=== PATIENT | male | born 1930 | race Caucasian/White ===

== ENCOUNTER → 2017-05-18 | Outpatient (CLI) | payer MEDICARE, BC ==
[~2017-05-18] MED LIST: IOHEXOL 300 MG/ML 100ML VIAL. IV ONE
--- NOTE | 2017-05-18 10:33 | RAD ---
CTA of the chest, abdomen, and pelvis. 05/18/2017 Indication: Ascending thoracic aortic aneurysm Comparison study: None Technique: Multidetector CT imaging of the chest, abdomen, and pelvis was performed following the administration of IV contrast. 3-D reconstructions of thoracic, abdominal, and pelvic vasculature were created on an independent workstation. Vascular findings: Heart size is normal. [place] coronary calcification noted. Coronary bypass procedure noted. At the level of the sinotubular junction the thoracic aorta is normal in caliber measuring 3.2 cm. There is ectasia of the ascending thoracic aorta to 3.7 cm. The level of the left subclavian artery the thoracic aorta measures 2.5 cm. The level of the aortic isthmus aorta measures up to 3 cm in diameter. Mild atherosclerotic vascular irregularity seen throughout the descending thoracic aorta. Descending thoracic aorta is mildly ectatic measuring 3.1 cm. At the level of the diaphragm the thoracic aorta measures approximately 3.2 cm. Celiac artery is patent. Mild stenosis of the proximal SMA is seen. Approximately 3 cm distal to the ostium appears to be a small nonflow limiting dissection of the SMA with mild associated ectasia. The remainder of the SMA is unremarkable. Moderate stenosis of the left renal artery is seen. Mild stenosis of the right renal artery is noted. Tortuosity of the distal abdominal aorta is seen There is a partially thrombosed infrarenal abdominal aortic aneurysm measuring 3.6 cm in diameter. The SHAKIRA arises from the aneurysmal portion of the abdominal aorta. Abdominal aorta returns to normal caliber prior to the aortic bifurcation. Mild ectasia of the bilateral common iliac arteries is seen. A common iliac, internal iliac, and external iliac arteries remain patent. Nonvascular findings: Scattered small mediastinal lymph nodes are noted without pathologically enlarged adenopathy. There is no pneumothorax or pleural effusion. Emphysematous changes including apical scarring are noted bilaterally. No acute appearing infiltrate is identified. There is a 4 mm noncalcified nodule in the left lower lobe (axial image 695). There is a 3 mm noncalcified nodule in the right upper lobe (axial image 184). There is a punctate 1 to 2 mm nodule in the apical right lower lobe (axial image 436). There is a noncalcified nodule more inferior right lower lobe measuring 6 mm in diameter (axial image 692). There is a subpleural nodule along the major fissure in the right lower lobe with a triangular configuration most likely due to pulmonary lymph node (axial image 715). No acute abnormalities involving the solid viscera of the abdomen are identified. Renal cysts noted bilaterally. Atrophic changes involving the pancreas are noted. A duodenal diverticulum is seen. No free fluid or free air seen in the abdomen or pelvis. No evidence of bowel obstruction is identified. Small hiatal hernia is noted. Postsurgical changes involving the distal large bowel consistent with prior distal large bowel resection noted. Correlate with surgical history. Increased stool is noted throughout the colon. Correlate with evidence of constipation. Bladder is grossly unremarkable predominately decompressed. No acute appearing osseous abnormalities are identified. S shaped scoliosis of the thoracic and lumbosacral spine noted. Calcified lesion along the anterior aspect of the right scapula is noted. The appearance suggests either an endochondroma or other such benign lesion versus intramuscular calcification which could be the result of prior trauma. Impression: 1. Ectasia of the ascending thoracic aorta 3.7 cm. Mild ectasia of the descending thoracic aorta 3.2 cm. 2. Infrarenal abdominal aortic aneurysm measuring up to 3.[address] surveillance recommended. 3. Multiple small noncalcified pulmonary nodules involving both lungs. Largest nodule measures 6 mm in the right lower lobe. CT surveillance recommended as described below in detail. Fleischner society pulmonary nodule recommendations 2017 guidelines Solid nodules Solitary nodule size: <6 mm low risk patients: no follow-up needed high risk patients: optional CT at 12 months Solitary nodule size: 6-8 mm low risk patients: follow-up at 6-12 months, then consider further follow-up at 18-24 months high risk patients: initial follow-up CT at 6-12 months and then at 18-24 months if no change Solitary nodule size: >8 mm either low or high risk patients consider follow-up CT at 3 months, and/or CT-PET, and/or biopsy Multiple nodules size: <6 mm low risk patients: no routine follow-up high risk patients: optional CT at 12 months Multiple nodules size: 6-8 mm low risk patients: follow-up at 3-6 months, then consider further follow-up at 18-24 months high risk patients: follow-up at 3-6 months, then at 18-24 months if no change Multiple nodules size: >8 mm low risk patients: follow-up at 3-6 months, then consider further follow-up at 18-24 months high risk patients: follow-up at 3-6 months, then at 18-24 months if no change Note: newly detected indeterminate nodule in persons 35 years of age or older. Low risk patients: minimal or absent history of smoking and or other known risk factors high risk patients: history of smoking or of other known risk factors (e.g. first degree relative with lung cancer, or exposure to asbestos, radon, uranium) nodule up to 8 mm is partly solid or is ground glass further follow-up is required after 24 months to exclude possible slow growing adenocarcinoma (SAKSHI) PQRS Compliance Statement: One or more of the following individualized dose reduction techniques were utilized for this examination: 1. Automated exposure control 2. Adjustment of the mA and/or kV according to patient size 3. Use of iterative reconstruction technique
== END | disposition home or self-care (01) ==
LOC: CT 08:24
PROVIDERS: ATTEND Internal Medicine Cardiovascular Disease
DX: I71.2 Thoracic aortic aneurysm, without rupture (principal); I10 Essential (primary) hypertension; R91.8 Other nonspecific abnormal finding of lung field
CPT/HCPCS: 71275; 74174; Q9967

== ENCOUNTER → 2017-11-14 | Outpatient (CLI) | payer MEDICARE, BC ==
[2017-11-14] MEDS: IOHEXOL 300 MG/ML 100ML VIAL. IV (08:50)
== END | disposition home or self-care (01) ==
LOC: CT 07:37
DX: I10 Essential (primary) hypertension (principal); I71.2 Thoracic aortic aneurysm, without rupture; I71.4 Abdominal aortic aneurysm, without rupture; J43.9 Emphysema, unspecified
CPT/HCPCS: 71275; 74174; Q9967

== ENCOUNTER → 2018-01-23 | Outpatient (CLI) | payer MEDICARE, BC ==
[2018-01-23] MEDS: REGADENOSON 0.4 MG/5 ML DISP.SYRIN. IV (11:04)
== END | disposition home or self-care (01) ==
LOC: ECHO 07:15
DX: I25.10 Atherosclerotic heart disease of native coronary artery without angina pectoris (principal); I35.1 Nonrheumatic aortic (valve) insufficiency; I10 Essential (primary) hypertension; J43.9 Emphysema, unspecified
CPT/HCPCS: 78452; 93017; 93306; 96374; 96375; 96376; A9500; J2785

== ENCOUNTER → 2018-03-14 | Outpatient (CLI) | payer MEDICARE, BC ==
[~2018-03-14] MED LIST changes: +CONTRAST GIVEN. MC PRN; +IOHEXOL 240 MG/ML 50ML VIAL. ONE; +IOHEXOL 240 MG/ML 50ML VIAL. PO ONE; +IOHEXOL 300 MG/ML 100ML VIAL. ONE
--- NOTE | 2018-03-14 13:43 | RAD ---
CT CHEST ABD PELVIS W/CONTRAST Indication: Anemia, lymphoma Technique: Postcontrast CT imaging was performed of the chest, abdomen, pelvis, multiplanar reconstruction images submitted. Oral contrast was given. One or more of the following individualized dose reduction techniques were utilized for this examination: 1. Automated exposure control 2. Adjustment of the mA and/or kV according to patient size 3. Use of iterative reconstruction technique. Contrast: 60 cc Omnipaque 300 Comparison: CTA exam November 14, 2017 CHEST: Findings: There again has been a median sternotomy. There is coronary calcification. There is again dilatation of the aortic root about 4.5 cm. Tubular ascending thoracic aorta measures about 3.8 cm, similar. No dissection flap is identified of the thoracic aorta. There is scattered plaque. There is no pleural or pericardial effusion, pneumothorax, infiltrate. There are stable small pulmonary nodules such as of the right lower lobe axial image 40 series 2 about 5 mm, right lower lobe axial image 39 about 5 mm, left lower lobe axial image 40 measuring 4 mm, right upper lobe axial image 9 about 3 to 4 mm. There is some paraseptal emphysema seen previously. There is no new significant lymphadenopathy of the chest. There is bilateral gynecomastia as seen previously. There is moderate thoracic dextroscoliosis. There is partially calcified mass lesion at the anterior medial margin of the right scapula overall dimension about 4.2 cm AP by 3.1 cm transverse by about 3.8 cm CC. IMPRESSION: 1. There is similar aneurysmal dilatation aortic root and tubular ascending thoracic aorta. 2. Small pulmonary nodules are stable compared with May 2017 exam. As per revised Fleischner guidelines, no additional follow-up needed if low risk factors, optional 12 month follow-up if increased risk factors. 3. There is bilateral gynecomastia. 4. There is again partially calcified mass lesion along the medial margin of the right scapula, mass such as chondrosarcoma in the differential considerations for which MRI evaluation is recommended. Abdomen and pelvis: FINDINGS: There is no new focal abnormality of the liver, normal-sized spleen, atrophic pancreas. Both kidneys enhance without hydronephrosis. There are again bilateral renal cysts, largest on the right about 3.8 cm. There is no adrenal nodularity. Gallbladder is present without obvious intraluminal abnormality by CT. There is again infrarenal abdominal aortic aneurysm about 3.6 cm in caliber, similar. No new significant lymphadenopathy is identified. Bowel is not significantly dilated. There is no free air or free fluid. There is some stool and gas distention of the rectum. Mild wall thickening of the terminal ileum is difficult to exclude on this exam. There is heterogeneity in the lumen of the colon such as near the splenic flexure more likely due to stool, although underlying mass not excludable. There is mild S-shaped scoliosis of the lumbar spine. There is multilevel advanced degenerative disc disease of the lumbar spine greater inferiorly, also multilevel lumbar facet degenerative change. IMPRESSION: 1. There is no significant lymphadenopathy. 2. There is stable aneurysmal dilatation of the infrarenal abdominal aorta. 3. Mild wall thickening of the terminal ileum as can be seen with ileitis is not excluded on this exam. 4. There is some retained stool in the colon, some heterogeneity in the lumen such as near the splenic flexure more likely due to stool although mass not excludable by CT. Electronically signed by: Houston Andres MD (03/14/2018 1:40 PM) [id number]
== END | disposition home or self-care (01) ==
LOC: CT 07:36
PROVIDERS: ATTEND Internal Medicine Hematology & Oncology
DX: D64.9 Anemia, unspecified (principal); I71.4 Abdominal aortic aneurysm, without rupture; M51.36 Other intervertebral disc degeneration, lumbar region; K63.89 Other specified diseases of intestine; M41.86 Other forms of scoliosis, lumbar region; N28.1 Cyst of kidney, acquired; N62 Hypertrophy of breast; J43.9 Emphysema, unspecified; I25.10 Atherosclerotic heart disease of native coronary artery without angina pectoris; I10 Essential (primary) hypertension
CPT/HCPCS: 71260; 74177; Q9966; Q9967

== ENCOUNTER → 2018-03-21 | Outpatient (CLI) | payer MEDICARE, BC ==
[~2018-03-21] MED LIST changes: -CONTRAST GIVEN. MC PRN; +GADOBUTROL 7.5 MMOL/7.5 ML VIAL IV ONE; -IOHEXOL 240 MG/ML 50ML VIAL. ONE; -IOHEXOL 240 MG/ML 50ML VIAL. PO ONE; -IOHEXOL 300 MG/ML 100ML VIAL. IV ONE; -IOHEXOL 300 MG/ML 100ML VIAL. ONE
--- NOTE | 2018-03-21 10:43 | RAD ---
MR of the right shoulder with and without contrast HISTORY: Right scapular mass. TECHNIQUE: Pre and postcontrast imaging obtained through the right shoulder. COMPARISON: CT chest scan 03/14/2018. FINDINGS: There is an irregular round structure just anterior to the scapula and glenoid, and surrounded by fluid, correlates with the calcified lesion seen on CT. This measures 2.4 cm diameter. This demonstrates central lack of signal compatible with a calcification, surrounded by a rim of fatty signal compatible with marrow. This is compatible with an osteochondral loose body in the subscapularis recess. 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 There is flattening and volume loss of the glenoid. Small joint effusion. Diffuse synovial enhancement. Diffuse labral blunting/degeneration. Rotator cuff tendinosis, no evidence of full-thickness retracted rotator cuff rupture. Acromioclavicular joint is mildly degenerative. Biceps tendon is intact. IMPRESSION: 1. Severe primary osteoarthritis. 2. Lesion within the subscapularis recess, correlates with the finding on CT chest, most likely a large osteochondral loose body. 3. Joint effusion with synovitis. Electronically signed by: Husam Rodriguez MD (03/21/2018 10:39 AM) [id number]
== END | disposition home or self-care (01) ==
LOC: MRI 08:21
PROVIDERS: ATTEND Internal Medicine Hematology & Oncology
DX: M19.011 Primary osteoarthritis, right shoulder (principal); M65.811 Other synovitis and tenosynovitis, right shoulder; M25.411 Effusion, right shoulder; I10 Essential (primary) hypertension; Z79.01 Long term (current) use of anticoagulants; Z86.73 Personal history of transient ischemic attack (TIA), and cerebral infarction without residual deficits
CPT/HCPCS: 73223; A9585

== ENCOUNTER → 2018-05-30 | Outpatient (CLI) | payer MEDICARE, BC ==
--- NOTE | 2018-05-30 17:46 | RAD ---
MR#: [id number] Date of Study: 05/30/2018 Ordering Physician: CANDIDA MESSER, Referring Physician: CANDIDA MESSER, Tech: Daryl Badillo MBA, RDMS, RVT, RDCS, RTR APPROVED REPORT Patient Location: OUT-PATIENT Indications edema Findings Ankle-brachial index of the right left side were obtained. Right arm: 118 mmHg, left arm 115 mmHg Right ankle 151 mmHg, left ankle 155 mmHg KENYA right side: 1.3 KENYA left side 1.3 Critical Notification Critical Value: No <Conclusion> 1. Mildly elevated bilateral ankle-brachial indices suggestive of calcification. Signed by : Jerry Kam, Electronically Approved : 05/30/2018 17:44:59
--- NOTE | 2018-05-30 17:47 | RAD ---
MR#: [id number] Date of Study: 05/30/2018 Ordering Physician: CANDIDA MESSER, Referring Physician: CANDIDA MESSER, Tech: Daryl Badillo MBA, RDMS, RVT, RDCS, RTR APPROVED REPORT Bilateral Lower Extremity Venous Study for DVT Patient Location: OUT-PATIENT Indications Lower Extremity Edema: Bilateral Vein Imaging (Right) CFV (R): Compressible SFJ (R): Compressible FEM (R): Compressible POP (R): Compressible DFV (R): Compressible PTV (R): Spontaneous GSV (R): Spontaneous Peroneals (R): Spontaneous Vein Imaging (Left) CFV (L): Compressible SFJ (L): Compressible FEM (L): Compressible POP (L): Compressible DFV (L): Compressible PTV (L): Spontaneous Peroneals (L): Spontaneous GAS (L): Spontaneous Doppler Evaluation (Right) CFV (R): Spontaneous POP (R):Spontaneous Doppler Evaluation (Left) CFV (L):Spontaneous POP (L):Spontaneous Findings The bilateral lower extremity deep veins were evaluated for thrombus with color Doppler, spectral and grayscale images. On the right the grayscale images of the common femoral, superficial femoral and popliteal veins do n ot demonstrate any evidence of thrombus and these veins appear to be compressible. The below-knee vei ns were not well visualized but grossly appear to be compressible. Spectral imaging and color Doppler do not reveal any evidence of obstruction to flow with normal respirophasic variation above the knee . Below the knee there is spontaneous flow noted. On the left, the grayscale images of the common femoral, superficial femoral and popliteal veins do n ot demonstrate any evidence of thrombus and these veins appear to be compressible. The below-knee vei ns again were not well visualized but grossly appear to be compressible. Spectral imaging and color D oppler do not reveal any evidence of obstruction to flow with normal respirophasic variation above th e knee. The below-knee veins demonstrate spontaneous flow. Critical Notification Critical Value: No <Conclusion> Negative for DVT in the bilateral lower extremities. Signed by : Jerry Kam, Electronically Approved : 05/30/2018 17:46:19
--- NOTE | 2018-05-30 17:49 | RAD ---
MR#: [id number] Date of Study: 05/30/2018 Ordering Physician: CANDIDA MESSER, Referring Physician: CANDIDA MESSER, Tech: Daryl Badillo MBA, RDMS, RVT, RDCS, RTR APPROVED REPORT Patient Location : OUT-PATIENT Indications Lower Extremity Edema : Bilateral Findings Grayscale images of the saphenofemoral junctions do not reveal any obvious evidence of thrombus. The left great saphenous vein has been previously stripped in 2008 The right great saphenous vein measures 4.1 mm and does not reflux. The bilateral lesser saphenous ve ins do not show any evidence of reflux. Critical Notification Critical Value: No <Conclusion> 1. Negative for reflux in the right greater and bilateral lesser saphenous veins. Previous left GSV s tripping. Signed by : Jerry Kam, Electronically Approved : 05/30/2018 17:47:30
== END | disposition home or self-care (01) ==
LOC: US 13:18
PROVIDERS: ATTEND Nurse Practitioner
DX: R60.0 Localized edema (principal); I25.10 Atherosclerotic heart disease of native coronary artery without angina pectoris
CPT/HCPCS: 93922; 93970

== ENCOUNTER → 2018-07-31 | Outpatient (CLI) | payer MEDICARE, BC ==
[~2018-07-31] MED LIST changes: +AMLO10TA8 PO; +AMLO5TAB10 PO; +ASPI-630 PO; +ATOR10TA60 PO; +BIMA2.5D OP; +BRIM5DRO2 OP; +CYAN250012 PO; +DOCU100C28 PO; +EYLEA EACHEYE; -GADOBUTROL 7.5 MMOL/7.5 ML VIAL IV ONE; +IRON1TAB2 PO; +LEVO25TA4 PO; +METO-239 PO; +OMEP20CA10 PO; +POLY17PO29 PO; +TRAM-48 PO; +VIT1CAPS12 PO
[2018-07-31 11:23] LABS: BASO % 0 % (0-3); EOS # 0.3 x10^3/uL (0.0-0.7); EOS % 4 % (0-3); HEMATOCRIT 40.1 % (39.0-53.0); HEMOGLOBIN 12.9 g/dL (13.0-17.5); LYMPH # 2.2 x10^3/uL (1.0-4.8); LYMPH % 30 % (24-48); MEAN CORPUSCULAR HEMOGLOBIN 30 pg (25-35); MEAN CORPUSCULAR HGB CONC 32 g/dL (31-37); MEAN CORPUSCULAR VOLUME 92 fL (79-100); MONO # 0.5 x10^3/uL (0.0-1.1); MONO % 7 % (0-9); NEUT # 4.3 x10^3uL (1.8-7.7); NEUT % 59 % (31-73); PLATELET COUNT 136 x10^3/uL (140-400); RED BLOOD COUNT 4.35 x10^6/uL (4.30-5.70); RED CELL DISTRIBUTION WIDTH 15.3 % (11.5-14.5); WHITE BLOOD COUNT 7.4 x10^3/uL (4.0-11.0)
[2018-07-31 11:25] LABS: BILIRUBIN,URINE NEGATIVE (NEG); CLARITY,URINE CLEAR; COLOR,URINE YELLOW; NITRITE,URINE NEGATIVE (NEG); PH,URINE 5.5; PROTEIN,URINE NEGATIVE (NEG-TRACE); UROBILINOGEN,URINE 0.2 mg/dL (0.2 mg/dL)
[2018-07-31 11:36] LABS: PROTHROMBIN TIME PATIENT 13.1 SEC (11.7-14.0)
[2018-07-31 11:41] LABS: BACTERIA,URINE 0 /HPF (0-FEW); RBC,URINE OCC /HPF (0-2); WBC,URINE 0 /HPF (0-4)
--- NOTE | 2018-08-07 18:17 | NUR ---
PATIENT WAS CALLED AT 1740 08/07/2018 AND UPDATE PRE - OP INSTRUCTIONS TO BE EHERE [facility]C-OPD AT 1205 AND CAN HAVE CLEAR LIQ. & WATER TILL 0930 ONLY OTHERWISE THE REST OF THE INSTRUCTIONS THE SAME AND VERBALIZED UNDERSTANDING.
== END | disposition home or self-care (01) ==
LOC: EDSEX → SURGPAT 10:34
PROVIDERS: ATTEND Orthopaedic Surgery
DX: Z01.818 Encounter for other preprocedural examination (principal); M19.011 Primary osteoarthritis, right shoulder; Z88.5 Allergy status to narcotic agent; Z79.01 Long term (current) use of anticoagulants
CPT/HCPCS: 36415; 81001; 82040; 85025; 85610; 85651; 85730; 87641

== ENCOUNTER 2018-08-08 11:30 | Inpatient (IN) | payer MEDICARE, BC ==
[~2018-08-08] VITALS: Ht 172.7 cm; Wt 72.1 kg
[~2018-08-08 11:30] MED LIST changes: -AMLO5TAB10 PO; +IV RINGERS,LACTATED 1000ML 1,000 ML IV SCH; +KETOROLAC 30MG VIAL 30 MG, ROPIVacaine 0.5% PF 60 ML, EPINEPHrine 0.5 MG in IV NORMAL S... IV PRN; +LIDOCAINE 1% PF 2 ML VIAL. ID PRN; +ONDANSETRON PF 4 MG/2 ML VIAL. IV PRN; +PROCHLORPERAZINE 10 MG/2 ML VIAL. IV PRN; -TRAM-48 PO; +fentaNYL PF VIAL 100 MCG/2 ML VIAL IV PRN
[2018-08-08] MEDS ORDERED: ACETAMINOPHEN 500 MG TABLET PO ONE (12:15)
[2018-08-08 12:26] LABS: PROTHROMBIN TIME PATIENT 13.7 SEC (11.7-14.0)
[2018-08-08] MEDS ORDERED: ROPIVacaine 0.5% PF 20 ML VIAL. ONE (14:09)
[2018-08-08] MEDS ORDERED: LIDOCAINE 2% PF 5 ML VIAL. ONE (14:11)
[2018-08-08] MEDS ORDERED: fentaNYL PF VIAL 100 MCG/2 ML VIAL ONE (14:11)
[2018-08-08] MEDS ORDERED: PROPOFOL 20 ML IV ONE (14:11)
[2018-08-08] MEDS ORDERED: MIDAZOLAM HCL/PF 2 MG/2 ML VIAL. ONE (14:26)
[2018-08-08] MEDS ORDERED: DESFLURANE > 120 MINUTES IH ONE (16:01)
[2018-08-08] MEDS ORDERED: FAMOTIDINE 20 MG/2 ML VIAL ONE (16:01)
[2018-08-08] MEDS ORDERED: DEXAMETHASONE SOD PHOS 20 MG/5 ML VIAL. ONE (16:01)
[2018-08-08] MEDS ORDERED: ONDANSETRON PF 4 MG/2 ML VIAL. ONE (16:01)
[2018-08-08] MEDS ORDERED: GLYCOPYRROLATE 1 MG/5 ML VIAL. ONE (16:39)
[2018-08-08] MEDS ORDERED: NEOSTIGMINE 10 MG/10 ML VIAL. ONE (18:11)
[2018-08-08] MEDS ORDERED: SEVOFLURANE > 120 MINUTES. IH ONE (18:36)
[2018-08-08] MEDS ORDERED: DEXTROSE 50% 25 GM / 50ML DISP.SYRIN. IV PRN (18:45)
[2018-08-08] MEDS ORDERED: oxyCODONE/APAP 7.5/325 1 TAB TABLET PO PRN (18:45)
[2018-08-08] MEDS ORDERED: ACETAMINOPHEN 325 MG TABLET. PO PRN (18:45)
[2018-08-08] MEDS ORDERED: HYDROmorphone 2 MG/ML VIAL IV PRN (18:45)
[2018-08-08] MEDS ORDERED: CALCIUM CARBONATE 500 MG TAB.CHEW PO PRN (18:45)
[2018-08-08] MEDS ORDERED: ZOLPIDEM 5 MG TABLET. PO PRN (18:45)
[2018-08-08] MEDS ORDERED: PROCHLORPERAZINE 5 MG TABLET. PO PRN (18:45)
[2018-08-08] MEDS ORDERED: traMADol 50 MG TABLET PO PRN (18:45)
[2018-08-08] MEDS ORDERED: 0.9 % SODIUM CHLORIDE 10 ML DISP.SYRIN. IV PRN (18:45)
--- NOTE | 2018-08-08 18:48 | PDOC4 ---
Operative Note Operative Note Date of surgery: 08/08/2018 Preoperative diagnosis: Degenerative joint disease right humeral joint Postoperative diagnosis same with right rotator cuff insufficiency Operative procedure: Right reverse shoulder arthroplasty Surgeon: Kaveh Assist: Jennifer Anesthesia: Gen. Estimated blood loss: 100 mL Complications: None Operative indications: Mr. Garduno is a 87-year-old male with severe left shoulder pain and limitations due to his degenerative joint disease. On his examination he has decreased active range of motion but unclear whether there was really rotator cuff arthropathy. I went over with him that since he had failed nonoperative management including injections and activity modification are operative treatment would include the possibility of a total shoulder arthroplasty if his rotator cuff is really intact and functional and reverse shoulder arthroplasty is necessary due to insufficiency of his rotator cuff. I told him that this would be judged at the time of surgery and covered the difference of the to procedures the rationale using models and a discussion of the mechanics involved. He understands the possibility of having to proceed with either procedure depending on the intraoperative findings all his questions were answered and he verbalized understanding of the possibility of infection continued pain instability nerve or blood vessel damage medical or other anesthetic consultations among others. Operative text: Patient was identified procedure verified patient placed in the supine position on the operative table. After adequate amounts of general anesthesia were administered he was placed in the Tmax table with the spider arm moura in semi-beachchair position and the right shoulder was prepped and draped in standard sterile fashion. After timeout was performed patient procedure identified and verified a deltopectoral approach was carried out cephalic vein was taken laterally deltoid was released distally as was the superior aspect of the pectoralis tendon. Initially rotator cuff tendon was grossly intact subscapularis was peeled off tagged and released from its anterior capsule attachment. When the humerus was exposed again initially rotator cuff was grossly intact however the rotator cuff footprint over the greater tuberosity was noted to be about 90% compromised at least as it was peeled back and the footprint completely uncovered. I thus meter installer due to the insufficiency of the rotator cuff insertion to proceed with a reverse shoulder arthroplasty humerus was reamed the cutting guide was cut between 0 and 20 of version reaming and a size 14 implant was chosen on the humeral side. The glenoid was exposed found to be completely denuded of cartilage as expected capsular release was performed and a guidewire was drilled load and an slight declination on the glenoid surface to prevent any scapular notching reaming was carried out to good bleeding bone without compromise especially inferiorly the area was drilled somewhat more after preparation to enhance ingrowth and a size 36 mm glenoid sphere baseplate was impacted into place with excellent interdigitation and a 42 mm screw was placed inferiorly and scapular spine and a 36 mm screw up to the base of the coracoid both gave excellent bite and were locked in position. 36 mm glenoid sphere was impacted into place engaging the Avila taper fully and trialing was carried out with a +6 standard polyethylene component. Excellent range of motion and stability were noted throughout trial humeral component was removed some bone graft was placed to enhance stability and in proper version the size 14 Mike reverse shoulder humeral stem was impacted in place and was preassembled with a +6 nonretention of polyethylene insert the shoulder was reduced and had equivalent range of motion and stability as the trial fitting. Subscapularis was repaired with #5 Ethibond suture as was the superior aspect of the pectoralis thorough irrigation was carried out fascia was closed with #1 strata fix PDS suture subcutaneous closure with buried Vicryl suture in subcuticular Monocryl followed by a sterile dressing patient was returned to recovery room in stable condition having tolerated procedure well Jennifer moorepublic health assistant was present for the procedure assisted in the prepping draping retraction and skin closure JOHANA BELTRAN MD Aug 08, 2018 18:48
[2018-08-08] MEDS: fentaNYL PF VIAL 100 MCG/2 ML VIAL IV PRN ×4 (18:56→19:25)
--- NOTE | 2018-08-08 19:35 | RAD ---
Indication:INPATIENT. POST OP RIGHT SHOULDER ARTHROSCOPY. PRIOR XRAY TECHNIQUE: 3 views of the right shoulder COMPARISON:Previous exam from 03/25/2017 FINDINGS:Status post total shoulder arthroplasty. No acute fracture. Moderate emphysema around the shoulder joint likely postsurgical. Stable sclerotic focus projecting over the scapula. Visualized right lung is clear. IMPRESSION: Expected postsurgical changes from total right shoulder arthroplasty. Electronically signed by: Madhu Remy DO (08/08/2018 7:32 PM) [facility]
[2018-08-08] MEDS: HYDROmorphone 2 MG/ML VIAL IV PRN ×2 (19:48→19:58)
[2018-08-08] MEDS ORDERED: IV DEXTROSE 5 %-0.45 % NACL 1,000 ML IV SCH (20:00)
[2018-08-08 20:15] VITALS: BP 142/81
--- NOTE | 2018-08-08 20:30 | NUR ---
Rec'd from PACU s/p right reverse shoulder arthroplasty. Patient A&O, denies pain, CMS intact right hand, dressing C/D. Family at bedside. Call light in reach.
[2018-08-08 20:45] VITALS: BP 138/87
[2018-08-08] MEDS ORDERED: NON FORMULARY ITEM (Brimonidine Tartrate/Timolol (Combigan Eye Drops) 5 ML) OP SCH (21:00)
[2018-08-08] MEDS ORDERED: ATORVASTATIN CALCIUM 10 MG TABLET. PO SCH (21:00)
[2018-08-08 21:15] VITALS: BP 129/76
[2018-08-08] MEDS: CELECOXIB 100 MG CAPSULE. PO SCH (21:40)
[2018-08-08] MEDS: BRIMONIDINE 0.2% OPHTH SOLUTION 5ML BOTTLE. OU SCH (21:41)
[2018-08-08] MEDS: DOCUSATE SODIUM 100 MG CAPSULE. PO SCH (21:41)
[2018-08-08] MEDS: TIMOLOL 0.5% OPHTH SOLUTION 5ML BOTTLE. OU SCH (21:41)
[2018-08-08 21:45] VITALS: BP 124/84
[2018-08-08] MEDS ORDERED: LATANOPROST 0.005% OPHTH SOLUTION 2.5ML BOTTLE. OU SCH (22:00)
[2018-08-08] MEDS: traMADol 50 MG TABLET PO PRN (22:10)
[2018-08-08] MEDS: ceFAZolin SODIUM 1 GM in IV DEXTROSE 5% 50 ML IV SCH (22:11)
[2018-08-08 23:09] VITALS: BP 115/78
[2018-08-09 03:00] VITALS: BP 113/78
[2018-08-09 04:22] LABS: HEMATOCRIT 38.7 % (39.0-53.0); HEMOGLOBIN 12.4 g/dL (13.0-17.5)
[2018-08-09] MEDS: ceFAZolin SODIUM 1 GM in IV DEXTROSE 5% 50 ML IV SCH ×2 (04:44→10:27)
[2018-08-09 04:49] VITALS: BP 117/71
--- NOTE | 2018-08-09 04:51 | NUR ---
Transferred from recliner to bed, "I started feeling woozy and everything was zhang." BP 117/71, p 54. Patient eating a turkey sandwich. "This might help."
[2018-08-09] MEDS ORDERED: LEVOTHYROXINE 25 MCG TABLET. PO SCH (06:00)
[2018-08-09] MEDS ORDERED: MAGNESIUM HYDROXIDE 2,400 MG/30 ML ORAL.SUSP. PO PRN (06:00)
[2018-08-09] MEDS: traMADol 50 MG TABLET PO PRN (06:09)
[2018-08-09 06:49] VITALS: BP 111/68
[2018-08-09] MEDS ORDERED: PANTOPRAZOLE 40 MG TABLET.DR. PO SCH (07:30)
[2018-08-09 08:40] VITALS: BP 100/64
[2018-08-09] MEDS: TIMOLOL 0.5% OPHTH SOLUTION 5ML BOTTLE. OU SCH (08:44)
[2018-08-09] MEDS: BRIMONIDINE 0.2% OPHTH SOLUTION 5ML BOTTLE. OU SCH (08:45)
[2018-08-09] MEDS: CELECOXIB 100 MG CAPSULE. PO SCH (08:48)
[2018-08-09] MEDS: DOCUSATE SODIUM 100 MG CAPSULE. PO SCH (08:51)
[2018-08-09] MEDS ORDERED: SENNOSIDES/DOCUSATE 8.6/50MG TABLET. PO SCH (09:00)
[2018-08-09] MEDS ORDERED: ZINC PO SCH (09:00)
[2018-08-09] MEDS ORDERED: POLYETHYLENE GLYCOL 3350 17 GM PACKET. PO SCH (09:00)
[2018-08-09] MEDS ORDERED: B12 PO SCH (09:00)
[2018-08-09] MEDS ORDERED: METOPROLOL SUCC 24HR ER 25 MG TAB.ER.24H. PO SCH ×2 (09:00→17:00)
[2018-08-09] MEDS ORDERED: VIT E PO SCH (09:00)
[2018-08-09] MEDS ORDERED: MULTIVITAMIN with MINERAL TABLET. PO SCH (09:00)
[2018-08-09] MEDS ORDERED: amLODIPine BESYLATE 10 MG TABLET PO SCH (09:00)
[2018-08-09] MEDS ORDERED: DSS PO SCH (09:00)
[2018-08-09] MEDS ORDERED: IRON CARB PO SCH (09:00)
[2018-08-09] MEDS ORDERED: VIT A PO SCH (09:00)
[2018-08-09] MEDS ORDERED: VIT C PO SCH (09:00)
[2018-08-09] MEDS ORDERED: GLUC PO SCH (09:00)
[2018-08-09] MEDS ORDERED: CYANOCOBALAMIN (VITAMIN B-12) 1,000 MCG TABLET. PO SCH (09:00)
[2018-08-09] MEDS ORDERED: [UNRECOGNIZED DRUG - OTHER] PO SCH (09:00)
[2018-08-09] MEDS ORDERED: COPPER PO SCH (09:00)
[2018-08-09] MEDS ORDERED: FERROUS SULFATE 325 MG TABLET. PO SCH (09:00)
[2018-08-09] MEDS ORDERED: ASPIRIN CHEWABLE 81 MG TABLET. PO SCH (09:00)
--- NOTE | 2018-08-09 10:15 | NUR ---
Up in chair and stated wanted to go back to bed. Feeling light headed and feels like passing out. Assisted pt to bed. BP 89/55 with hrt rate 56. Held this am BP meds. Encourage pt to increase po fluids. Instructed pt to call for assistance when getting up. Verbalized understanding. Stated felt better. Cont. monitor.
[2018-08-09] MEDS ORDERED: amLODIPine BESYLATE 5 MG TABLET PO SCH (11:00)
[2018-08-09 11:16] VITALS: BP 98/63
[2018-08-09 15:07] VITALS: BP 105/67
--- NOTE | 2018-08-09 15:07 | NUR ---
No further c/o light headed or dizziness. Has been visiting with in room. Pt has been ambulating in room. Ate 100% lunch. VS stable. Wants to go home. Left message with Dr. Linn's office. Cont. monitor.
[2018-08-09] MEDS ORDERED: BISACODYL 10 MG SUPP.RECT. PR PRN (16:00)
[2018-08-09] MEDS ORDERED: TRAM-48 PO (16:05)
--- NOTE | 2018-08-09 16:45 | NUR ---
Discharge instructions given with prescription. Answered questions and concerns. Both pt and spouse verbalized understanding. Pt discharge home.
--- NOTE | 2018-08-09 23:59 | DS ---
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 PROCEDURE: Right reverse shoulder arthroplasty. DISPOSITION: Home with home health physical therapy. FOLLOWUP: Dr. Linn in 10-14 days. ACTIVITY: Standard reverse shoulder precautions of avoiding talking in the shirt behind the back for the first 2 months; otherwise, he can undergo gentle reaching of fine motor use and some physical therapy for elevation strengthening as tolerated. Report any redness, drainage, fever, chills, uncontrolled pain or other problems. DISCHARGE MEDICATIONS: Include tramadol 50 mg p.o. q. 4 hours p.r.n. pain. Resume home medications. BRIEF DESCRIPTION OF HOSPITAL COURSE: The patient underwent an uncomplicated right reverse shoulder arthroplasty. Pain was well controlled after surgery. He had undergone some physical therapy for some early instruction on his activities and proceeded well with ambulation and transfers without incident and was discharged home in stable condition. JOHANA LINN MD DR: RIDGE/james JOB#: [id number] / [id number]
[2018-08-18] MEDS ORDERED: AMLO5TAB10 PO (12:48)
== END 2018-08-09 16:50 | disposition home or self-care (01) | DRG 483 ==
LOC: EDSEX → OPSVCIP 11:30 → 4 SOUTHEST 20:15
PROVIDERS: ADMIT Orthopaedic Surgery; ATTEND Orthopaedic Surgery
PROC: 0RRJ00Z Replacement of Right Shoulder Joint with Reverse Ball and Socket Synthetic Substitute, Open Approach (ICD-10-PCS; principal; 2018-08-08 15:15)
DX: M19.011 Primary osteoarthritis, right shoulder (principal); M75.101 Unspecified rotator cuff tear or rupture of right shoulder, not specified as traumatic; Z88.8 Allergy status to other drugs, medicaments and biological substances
CPT/HCPCS: 36415; 73030; 85014; 85018; 85610; 85730; 86850; 86900; 86901; A7015; J0690; J0696; J1100; J1170; J2001; J2250; J2405; J2704; J2710; J2795; J3010; J3490; J7030; J7120; 97110; 97116; 97535; C1769

== ENCOUNTER 2018-08-16 15:01 | Inpatient (IN) | payer MEDICARE, BC ==
[~2018-08-16] VITALS: Ht 174 cm; Wt 68.7 kg
[~2018-08-16 15:01] MED LIST changes: -IV RINGERS,LACTATED 1000ML 1,000 ML IV SCH; -KETOROLAC 30MG VIAL 30 MG, ROPIVacaine 0.5% PF 60 ML, EPINEPHrine 0.5 MG in IV NORMAL S... IV PRN; -LIDOCAINE 1% PF 2 ML VIAL. ID PRN; -ONDANSETRON PF 4 MG/2 ML VIAL. IV PRN; -PROCHLORPERAZINE 10 MG/2 ML VIAL. IV PRN; +TRAM-48 PO; -fentaNYL PF VIAL 100 MCG/2 ML VIAL IV PRN
[2018-08-16 16:20] VITALS: BP 154/72
--- NOTE | 2018-08-16 17:58 | EKG ---
[facility] [address] [place] [address] Test Date: 2018-08-16 Test Time: 17:53:25 Pat Name: KRISTOPHER KINCAID Department: Room: 263 1 Gender: M Solar Energy Technician: : 1930 Requested By: MARIA DOLORES CARBONE Order Number: [id number] Reading MD: Jerry Kam MD Measurements Intervals [place] Rate: 73 P: NE: QRS: -45 QRSD: 124 T: 44 QT: 400 QTc: 444 Interpretive Statements PROBABLE SR PVC Electronically Signed On 08-17-2018 11:16:11 [facility] MAINTENANCE TECHNICIAN by Jerry Kam MD
--- NOTE | 2018-08-16 18:15 | RAD ---
CT HEAD WO CONTRAST History: SYNCOPE, FALL, NO PRIORS Comparison: None. Technique: Noncontrast CT imaging was performed of the head. Exposure: One or more of the following individualized dose reduction techniques were utilized for this examination: 1. Automated exposure control 2. Adjustment of the mA and/or kV according to patient size 3. Use of iterative reconstruction technique. Findings: No acute extra-axial or parenchymal hemorrhage is identified. There is no significant intra-axial mass effect, midline shift, or extra-axial fluid collection. The zhang-white differentiation of the major vascular territories is preserved. Ventricular size is portion to sulcal spaces, mild supratentorial involutional change. There is multifocal moderate to severe ill-defined low-density of the supratentorial parenchyma bilaterally somewhat greater on the left. Mastoid air cells are aerated. There is near complete opacification left sphenoid sinus with associated calcifications, may be partially calcified polypoid lesion. There is right sultana bullosa. No acute calvarial abnormality is identified. Impression: 1. There is no evidence of acute intracranial hemorrhage. There is multifocal low-density of the supratentorial parenchyma bilaterally somewhat greater on the left, nonspecific findings more commonly due to chronic microvascular ischemic disease in a patient this age. There is mild supratentorial involutional change. 3. There is near complete opacification of the left sphenoid sinus, associated internal calcifications likely chronic. Electronically signed by: Houston Andres MD (08/16/2018 6:13 PM) [facility]
[2018-08-16 18:40] LABS: BASO % 1 % (0-3); EOS # 0.4 x10^3/uL (0.0-0.7); EOS % 5 % (0-3); HEMATOCRIT 31.6 % (39.0-53.0); HEMOGLOBIN 10.3 g/dL (13.0-17.5); LYMPH # 1.6 x10^3/uL (1.0-4.8); LYMPH % 21 % (24-48); MEAN CORPUSCULAR HEMOGLOBIN 30 pg (25-35); MEAN CORPUSCULAR HGB CONC 33 g/dL (31-37); MEAN CORPUSCULAR VOLUME 93 fL (79-100); MONO # 0.6 x10^3/uL (0.0-1.1); MONO % 8 % (0-9); NEUT % 66 % (31-73); PLATELET COUNT 158 x10^3/uL (140-400); RED BLOOD COUNT 3.42 x10^6/uL (4.30-5.70); RED CELL DISTRIBUTION WIDTH 15.2 % (11.5-14.5); WHITE BLOOD COUNT 7.6 x10^3/uL (4.0-11.0)
[2018-08-16 18:57] LABS: ALBUMIN 3.2 g/dL (3.4-5.0); ALBUMIN/GLOBULIN RATIO 0.9 (1.0-1.7); CALCIUM 9.2 mg/dL (8.5-10.1); CREATININE 1.3 mg/dL (0.7-1.3); GFR 52.5; POTASSIUM 4.1 mmol/L (3.5-5.1); TOTAL BILIRUBIN 0.7 mg/dL (0.2-1.0); TOTAL PROTEIN 6.8 g/dL (6.4-8.2)
[2018-08-16 19:05] VITALS: BP 135/80
[2018-08-16 22:05] VITALS: BP 125/67
[2018-08-17] VITALS (9 sets, daily range): BP systolic 112–131; BP diastolic 59–76
[2018-08-17 05:41] LABS: CHOLESTEROL/HDL RATIO 2.8
[2018-08-17] MEDS ORDERED: DOCUSATE SODIUM 100 MG CAPSULE. PO PRN (06:45)
[2018-08-17] MEDS ORDERED: AFLIBERCEPT EACHEYE SCH (06:45)
--- NOTE | 2018-08-17 06:55 | PDOC1 ---
History and Physical Date of Admission Date of Admission 08/16/18 Identification/Chief Complaint Chief Complaint Syncopal event Source Source: Patient History of Present Illness History of Present Illness Pt presented to the clinic yesterday after experiencing a syncopal event at home earlier that morning. Pt states that he had been icing his right arm ( recently had shoulder surgery) and went to get up to put the ice back in the freezer. He does not remember everything that happened, but before he got to the freezer he passed out. He knows that he hit his head on the ground. He does not know how long he was out. Says that while he was in the hospital had near syncopal events, but they were slightly different... his eyes would get dark and he would start to feel "fuzzy". This occurred suddenly and he did not really have any warning signs. In clinic pt was found to be bradycardic with a pulse in the 40s. He was orthostatic. An EKG was obtained which was not normal and was a new change compared to the previous EKG I had available to review from 10/27. He denies chest pain, heart palpitations, etc. He has been feeling well. Denies any weakness in his arms or legs. Past Medical History Cardiovascular: CAD, CHF, HTN, Hyperlipidemia, Other (Aortic Aneurysm) Pulmonary: No pertinent hx CENTRAL NERVOUS SYSTEM: CVA GI: GERD Heme/Onc: Cancer (Non hodgkins lymphoma, colon cancer), Other (Thrombocytopenia ) Hepatobiliary: No pertinent hx Psych: No pertinent hx Rheumatologic: No pertinent hx Infectious disease: No pertinent hx ENT: No pertinent hx Renal/: Chronic renal insuff Endocrine: Hypothyroidism Dermatology: No pertinent hx Past Surgical History Past Surgical History: CABG, Hernia Repair, Other (Colon resection, prostate surgery) Family History Family History: Heart Disease, Hypertension Social History Smoke: Quit ALCOHOL: none Drugs: None Current Medications Current Medications Current Medications Medications (Trade) Dose Ordered Sig/Maximilian Start Time Stop Time Status Last Admin Dose Admin Amlodipine Besylate (Norvasc) 5 mg DAILY 08/17/18 09:00 UNV Aspirin (Children'S Aspirin) 81 mg DAILY 08/17/18 09:00 UNV Atorvastatin Calcium (Lipitor) 10 mg HS 08/17/18 21:00 UNV Docusate Sodium (Colace) 100 mg DAILY PRN 08/17/18 06:45 UNV Non-Formulary Medication (Bimatoprost (Lumigan)) 2.5 ml DAILY 08/17/18 09:00 UNV Non-Formulary Medication (Brimonidine Tartrate/Timolol (Combigan Eye Drops)) 5 ml BID 08/17/18 09:00 UNV Non-Formulary Medication (Levothyroxine Sodium ) 25 mcg DAILYAC 08/17/18 07:30 UNV Non-Formulary Medication (Omeprazole ) 20 mg DAILY 08/17/18 09:00 UNV Non-Formulary Medication ([Eylea] ) 40 mg EVERY 6 WEEKS 08/17/18 06:45 UNV Allergies Allergies Allergies Coded Allergies Type Severity Reaction Last Updated Verified codeine Adverse Reaction Severe HALLUCINATIONS 08/08/18 Yes morphine Adverse Reaction Severe HALLUCINATIONS 08/08/18 Yes ROS Review of System CONSTITUTIONAL: No fever or chills EYES: No recent changes SKIN: No rash or itching CARDIOVASCULAR: No chest pain, syncope, palpitations, or edema RESPIRATORY: No SOB or cough GASTROINTESTINAL: No nausea, vomiting or abdominal pain NEUROLOGICAL: No headaches or weakness ENDOCRINE: No cold or heat intolerance GENITOURINARY: No urgency or frequency of urination MUSCULOSKELETAL: No back pain or joint pain LYMPHATICS: No enlarged lymph nodes PSYCHIATRIC: No anxiety or depression Physical Exam Physical Exam GEN.: No apparent distress. Alert and oriented. Thin HEENT: Head is normocephalic, atraumatic NECK: Supple. LUNGS: Clear to auscultation. HEART: RRR, S1, S2 present. Peripheral pulses intact ABDOMEN: Soft, nontender. Positive bowel sounds. EXTREMITIES: Without any cyanosis. NEUROLOGIC: Normal speech, normal tone PSYCHIATRIC: Normal affect, normal mood. SKIN: No ulcerations, ecchymosis multiple areas of body Vitals Vitals Vital Signs Date Time Temp Pulse Resp B/P (MAP) Pulse Ox O2 Delivery O2 Flow Rate FiO2 08/17/18 03:08 98.6 70 16 121/69 (86) 95 Room Air 98.6 Labs Labs Laboratory Tests Test 08/16/18 18:26 08/16/18 23:12 08/17/18 03:45 White Blood Count 7.6 x10^3/uL (4.0-11.0) Red Blood Count 3.42 x10^6/uL (4.30-5.70) Hemoglobin 10.3 g/dL (13.0-17.5) Hematocrit 31.6 % (39.0-53.0) Mean Corpuscular Volume 93 fL (79-100) Mean Corpuscular Hemoglobin 30 pg (25-35) Mean Corpuscular Hemoglobin Concent 33 g/dL (31-37) Red Cell Distribution Width 15.2 % (11.5-14.5) Platelet Count 158 x10^3/uL (140-400) Neutrophils (%) (Auto) 66 % (31-73) Lymphocytes (%) (Auto) 21 % (24-48) Monocytes (%) (Auto) 8 % (0-9) Eosinophils (%) (Auto) 5 % (0-3) Basophils (%) (Auto) 1 % (0-3) Neutrophils # (Auto) 5.0 x10^3uL (1.8-7.7) Lymphocytes # (Auto) 1.6 x10^3/uL (1.0-4.8) Monocytes # (Auto) 0.6 x10^3/uL (0.0-1.1) Eosinophils # (Auto) 0.4 x10^3/uL (0.0-0.7) Basophils # (Auto) 0.0 x10^3/uL (0.0-0.2) Sodium Level 140 mmol/L (136-145) Potassium Level 4.1 mmol/L (3.5-5.1) Chloride Level 101 mmol/L (98-107) Carbon Dioxide Level 30 mmol/L (21-32) Anion Gap 9 (6-14) Blood Urea Nitrogen 23 mg/dL (8-26) Creatinine 1.3 mg/dL (0.7-1.3) Estimated GFR (Cockcroft-Gault) 52.5 BUN/Creatinine Ratio 18 (6-20) Glucose Level 167 mg/dL (70-99) Calcium Level 9.2 mg/dL (8.5-10.1) Total Bilirubin 0.7 mg/dL (0.2-1.0) Aspartate Amino Transf (AST/SGOT) 24 U/L (15-37) Alanine Aminotransferase (ALT/SGPT) 18 U/L (16-63) Alkaline Phosphatase 64 U/L (46-116) Troponin I Quantitative < 0.017 ng/mL (0.000-0.055) < 0.017 ng/mL (0.000-0.055) < 0.017 ng/mL (0.000-0.055) Total Protein 6.8 g/dL (6.4-8.2) Albumin 3.2 g/dL (3.4-5.0) Albumin/Globulin Ratio 0.9 (1.0-1.7) Triglycerides Level 66 mg/dL (0-150) Cholesterol Level 123 mg/dL (0-200) LDL Cholesterol, Calculated 66 mg/dL (0-100) VLDL Cholesterol, Calculated 13 mg/dL (0-40) Non-HDL Cholesterol Calculated 79 mg/dL (0-129) HDL Cholesterol 44 mg/dL (40-60) Cholesterol/HDL Ratio 2.8 Laboratory Tests Test 08/16/18 18:26 08/16/18 23:12 08/17/18 03:45 White Blood Count 7.6 x10^3/uL (4.0-11.0) Red Blood Count 3.42 x10^6/uL (4.30-5.70) Hemoglobin 10.3 g/dL (13.0-17.5) Hematocrit 31.6 % (39.0-53.0) Mean Corpuscular Volume 93 fL (79-100) Mean Corpuscular Hemoglobin 30 pg (25-35) Mean Corpuscular Hemoglobin Concent 33 g/dL (31-37) Red Cell Distribution Width 15.2 % (11.5-14.5) Platelet Count 158 x10^3/uL (140-400) Neutrophils (%) (Auto) 66 % (31-73) Lymphocytes (%) (Auto) 21 % (24-48) Monocytes (%) (Auto) 8 % (0-9) Eosinophils (%) (Auto) 5 % (0-3) Basophils (%) (Auto) 1 % (0-3) Neutrophils # (Auto) 5.0 x10^3uL (1.8-7.7) Lymphocytes # (Auto) 1.6 x10^3/uL (1.0-4.8) Monocytes # (Auto) 0.6 x10^3/uL (0.0-1.1) Eosinophils # (Auto) 0.4 x10^3/uL (0.0-0.7) Basophils # (Auto) 0.0 x10^3/uL (0.0-0.2) Sodium Level 140 mmol/L (136-145) Potassium Level 4.1 mmol/L (3.5-5.1) Chloride Level 101 mmol/L (98-107) Carbon Dioxide Level 30 mmol/L (21-32) Anion Gap 9 (6-14) Blood Urea Nitrogen 23 mg/dL (8-26) Creatinine 1.3 mg/dL (0.7-1.3) Estimated GFR (Cockcroft-Gault) 52.5 BUN/Creatinine Ratio 18 (6-20) Glucose Level 167 mg/dL (70-99) Calcium Level 9.2 mg/dL (8.5-10.1) Total Bilirubin 0.7 mg/dL (0.2-1.0) Aspartate Amino Transf (AST/SGOT) 24 U/L (15-37) Alanine Aminotransferase (ALT/SGPT) 18 U/L (16-63) Alkaline Phosphatase 64 U/L (46-116) Troponin I Quantitative < 0.017 ng/mL (0.000-0.055) < 0.017 ng/mL (0.000-0.055) < 0.017 ng/mL (0.000-0.055) Total Protein 6.8 g/dL (6.4-8.2) Albumin 3.2 g/dL (3.4-5.0) Albumin/Globulin Ratio 0.9 (1.0-1.7) Triglycerides Level 66 mg/dL (0-150) Cholesterol Level 123 mg/dL (0-200) LDL Cholesterol, Calculated 66 mg/dL (0-100) VLDL Cholesterol, Calculated 13 mg/dL (0-40) Non-HDL Cholesterol Calculated 79 mg/dL (0-129) HDL Cholesterol 44 mg/dL (40-60) Cholesterol/HDL Ratio 2.8 VTE Prophylaxis Ordered VTE Prophylaxis Devices: No VTE Pharmacological Prophylaxi: No Assessment/Plan Assessment/Plan Pt is a 87yo CM admitted for syncopal event 1)Syncope- pt was found to be bradycardic with orthostatic hypotension in clinic yesterday. His EKG was not normal (although no changes indicating acute DE) and had changed from previous EKG available from 10/27. Pt currently without symptoms. Troponin x 3 WNL. Pt hit his head; CT without contrast EWNL. Reviewed tele monitor and having multiple PVC, trigeminy, heart rate fluctuates from rodri to tachy. Cardiology consulted. 2)Anemia- mild. Will start Ferrous Sulfate 3)Chronic thrombocytopenia- currently improved 4)Hx Lymphoma/Colon Cancer- stable 5)HTN- well controlled. Holding pt's beta lindsay. Continuing Amlodipine 5mg 6)HLD- well controlled. Will continue atorvastatin 10mg 7)Hypothyroidism- previously well controlled. Continue levothyroxine 25mcg 8)CKD- Stage 3, stable 9)CAD 10)Hx CVA MARIA DOLORES CARBONE MD Aug 17, 2018 06:55
[2018-08-17] MEDS: LEVOTHYROXINE 25 MCG TABLET. PO SCH (07:47)
[2018-08-17] MEDS ORDERED: amLODIPine BESYLATE 5 MG TABLET PO SCH (09:00)
[2018-08-17] MEDS: BRIMONIDINE 0.2% OPHTH SOLUTION 5ML BOTTLE. OU SCH ×2 (09:00→22:03)
[2018-08-17] MEDS: TIMOLOL 0.5% OPHTH SOLUTION 5ML BOTTLE. OU SCH ×2 (09:00→22:02)
--- NOTE | 2018-08-17 12:24 | PDOC2 ---
KAMRAN HANNA RN REVIEW 08/17/18 1224: CARDIAC CONSULT DATE OF CONSULT Date of Consult DATE: 08/17/18 TIME: 11:41 REASON FOR CONSULT Reason for Consult: syncope REFERRING PHYSICIAN Referring Physician: Meliton SOURCE Source: Chart review, Patient HISTORY OF PRESENT ILLNESS HISTORY OF PRESENT ILLNESS This ia pleasant 87 yo male admitted for complains of passing out. He recently had surgery on his shoulder last week Tuesday and complains of swelling to arm and tenderness increasing since 2 days after coming home from hospital He then saw his PCP yesterday. Upon exam by his PCP he disclosed that he fell flat on his face with unknown duration. He was then noted to have orthostasis and possibly bradycardia. He is on toprol at home and other BP meds. For me he explained that he stood up and went to the fridge to return his ice bag when suddenly he felt like everything was turning black and roaring sensation to his head and the next thing he noted was he was on the floor as well as nausea and no vertigo. No significant injuries noted. No tinnitus, blurred vision, [place], palpitations. No exertional CP nor NO lately. He did have at least 3 dizzy spells last week post with PT when ambulated and none since then till yesterday. No noted arrhythmias in the past. He has not had any dizzy spells as an inpt. No bowel or bladder incontinence. No hx of seizures. Also verbalized at least 2 L of PO hydration a day. PAST MEDICAL HISTORY Cardiovascular: CAD, HTN, Hyperlipidemia, Other (Ascending aortic aneurysm and ?iliac aneurysm) GI: GERD Heme/Onc: No pertinent hx Psych: No pertinent hx Musculoskeletal: Osteoarthritis Rheumatologic: Gout Infectious disease: No pertinent hx ENT: No pertinent hx, Other (glaucoma) Renal/: No pertinent hx Endocrine: Hypothyroidism Dermatology: No pertinent hx PAST SURGICAL HISTORY Past Surgical History: Arthroscopy (revere right TSA), CABG, Hernia Repair, Colon Resection, Other (prostate surgery) FAMILY HISTORY Family History: Heart Disease SOCIAL HISTORY Smoke: No ALCOHOL: rare Drugs: None Lives: with Family CURRENT MEDICATIONS CURRENT MEDICATIONS Current Medications Medications (Trade) Dose Ordered Sig/Maximilian Route PRN Reason Start Time Stop Time Status Last Admin Dose Admin Levothyroxine Sodium (Synthroid) 25 mcg DAILYAC PO 08/17/18 07:30 08/17/18 07:47 ALLERGIES ALLERGIES: Coded Allergies: codeine (Verified Adverse Reaction, Severe, HALLUCINATIONS, 08/08/18) morphine (Verified Adverse Reaction, Severe, HALLUCINATIONS, 08/08/18) ROS Review of System 14 point ROS evaluated with pertinent positives noted per HPI PHYSICAL EXAM General: Alert, Oriented X3, Cooperative, No acute distress HEENT: Atraumatic, Mucous membr. moist/pink Lungs: Clear to auscultation, Normal air movement Heart: Regular rate (SR with PVCs), Other (2/6 systolic murmur to LLS border) Abdomen: Soft, No tenderness Extremities: No cyanosis, Other (RUE edema and tenderness) Skin: No breakdown Neuro: Normal speech, Sensation intact Psych/Mental Status: Mental status NL, Mood NL MUSCULOSKELETAL: Osteoarthritic changes both hands VITALS VITALS Vital Signs Date Time Temp Pulse Resp B/P (MAP) Pulse Ox O2 Delivery O2 Flow Rate FiO2 08/17/18 11:00 98.3 60 18 126/67 (86) 99 Room Air 98.3 LABS Lab: Laboratory Tests Test 08/16/18 18:26 08/16/18 23:12 08/17/18 03:45 White Blood Count 7.6 x10^3/uL (4.0-11.0) Red Blood Count 3.42 x10^6/uL (4.30-5.70) Hemoglobin 10.3 g/dL (13.0-17.5) Hematocrit 31.6 % (39.0-53.0) Mean Corpuscular Volume 93 fL (79-100) Mean Corpuscular Hemoglobin 30 pg (25-35) Mean Corpuscular Hemoglobin Concent 33 g/dL (31-37) Red Cell Distribution Width 15.2 % (11.5-14.5) Platelet Count 158 x10^3/uL (140-400) Neutrophils (%) (Auto) 66 % (31-73) Lymphocytes (%) (Auto) 21 % (24-48) Monocytes (%) (Auto) 8 % (0-9) Eosinophils (%) (Auto) 5 % (0-3) Basophils (%) (Auto) 1 % (0-3) Neutrophils # (Auto) 5.0 x10^3uL (1.8-7.7) Lymphocytes # (Auto) 1.6 x10^3/uL (1.0-4.8) Monocytes # (Auto) 0.6 x10^3/uL (0.0-1.1) Eosinophils # (Auto) 0.4 x10^3/uL (0.0-0.7) Basophils # (Auto) 0.0 x10^3/uL (0.0-0.2) Sodium Level 140 mmol/L (136-145) Potassium Level 4.1 mmol/L (3.5-5.1) Chloride Level 101 mmol/L (98-107) Carbon Dioxide Level 30 mmol/L (21-32) Anion Gap 9 (6-14) Blood Urea Nitrogen 23 mg/dL (8-26) Creatinine 1.3 mg/dL (0.7-1.3) Estimated GFR (Cockcroft-Gault) 52.5 BUN/Creatinine Ratio 18 (6-20) Glucose Level 167 mg/dL (70-99) Calcium Level 9.2 mg/dL (8.5-10.1) Total Bilirubin 0.7 mg/dL (0.2-1.0) Aspartate Amino Transf (AST/SGOT) 24 U/L (15-37) Alanine Aminotransferase (ALT/SGPT) 18 U/L (16-63) Alkaline Phosphatase 64 U/L (46-116) Troponin I Quantitative < 0.017 ng/mL (0.000-0.055) < 0.017 ng/mL (0.000-0.055) < 0.017 ng/mL (0.000-0.055) Total Protein 6.8 g/dL (6.4-8.2) Albumin 3.2 g/dL (3.4-5.0) Albumin/Globulin Ratio 0.9 (1.0-1.7) Triglycerides Level 66 mg/dL (0-150) Cholesterol Level 123 mg/dL (0-200) LDL Cholesterol, Calculated 66 mg/dL (0-100) VLDL Cholesterol, Calculated 13 mg/dL (0-40) Non-HDL Cholesterol Calculated 79 mg/dL (0-129) HDL Cholesterol 44 mg/dL (40-60) Cholesterol/HDL Ratio 2.8 Thyroid Stimulating Hormone (TSH) 2.710 uIU/mL (0.358-3.74) ECHOCARDIOGRAM ECHOCARDIOGRAM <Conclusion> The left ventricle is normal size. The left ventricular systolic function is normal and the ejection fraction is within normal range. The Ejection Fraction is 50-55%. There is no significant aortic valvular stenosis. Doppler and Color Flow revealed mild to moderate aortic regurgitation. Doppler and Color-flow revealed trace mitral regurgitation. Doppler and Color Flow revealed trace tricuspid regurgitation. DATE: 01/23/18 1248 STRESS TEST STRESS TEST Conclusion 1. No EKG evidence of stressed induced ischemia. 2. Nuclear imaging shows no reversible ischemia or infarct. 3. Overall normal LV systolic function with an ejection fraction of 58% a small area of mild hypokinesis in the septal wall. 4. Moderately low risk Lexiscan nuclear stress test. DATE: 01/23/18 1258 ASSESSMENT/PLAN ASSESSMENT/PLAN 1. Syncope with nontraumatic fall: no trauma. Suspect orthostasis 2. Arrhythmia: no bradycardia so far. SR with frequent unifocal PVCs 3. CAD: past CABG, clinically stable with recent MPI as above 4. S/P Right rTSA: 08/08/18 5. RUE edema and pain 6. HTN: controlled Recommendations 1. Continue with ASA. Hold toprol for now with mention of bradycardia in PCP's office for now. 2. Check for orthostasis 3. TTE, RUE sono and rule out DVT 4. appears to have high PVC burden, may need EP referral. Await test. 5. BMP and Mg. LILLIE RAMIREZ MD 08/17/18 1427: CARDIAC CONSULT ASSESSMENT/PLAN ASSESSMENT/PLAN Pt. seen and examined. Agree with above WEAVE ROOM SUPERVISOR note. No clear evidence of arrhythmias. hold BP meds. Monitor on an outpt basis. Supportive care. KAMRAN HANNA APRN Aug 17, 2018 12:24 LILLIE RAMIREZ MD Aug 17, 2018 14:27
[2018-08-17 12:47] LABS: CALCIUM 8.6 mg/dL (8.5-10.1); CREATININE 1.3 mg/dL (0.7-1.3); GFR 52.5
[2018-08-17] MEDS: PANTOPRAZOLE 40 MG TABLET.DR. PO SCH (13:13)
[2018-08-17] MEDS: ASPIRIN CHEWABLE 81 MG TABLET. PO SCH (13:13)
--- NOTE | 2018-08-17 14:28 | RAD ---
Right upper extremity venous duplex study 08/17/2018 2:24 PM Clinical History: Right upper extremity pain and swelling. Technique: Using a combination of real time ultrasound imaging and color-flow and pulse Doppler imaging techniques, including spectral analysis, graded compression and augmentation, duplex evaluation of the deep venous system of the right upper extremity was performed. Multiple images were obtained. Findings: There is no sonographic evidence of deep venous thrombosis involving the visualized deep venous structures of the right upper extremity. Subcutaneous edema within the posterior medial forearm noted. Impression: No evidence of deep venous thrombosis involving the right upper extremity Electronically signed by: Vivek Martinez MD (08/17/2018 2:25 PM) [id number]
--- NOTE | 2018-08-17 15:18 | CARD ---
MR#: [id number] Date of Study: 08/17/2018 Ordering Physician: KAMRAN HANNA, Referring Physician: MARIA DOLORES CARBONE Tech: Delmy Cortes APPROVED REPORT EXAM: Two-dimensional and M-mode echocardiogram with Doppler and color Doppler. Other Information Quality : GoodHR: 83bpm INDICATION Syncope 2D DIMENSIONS RVDd3.3 (2.9-3.5cm)Left Atrium(2D)3.8 (1.6-4.0cm) IVSd1.2 (0.7-1.1cm)Aortic Root(2D)3.7 (2.0-3.7cm) LVDd5.0 (3.9-5.9cm)LVOT Diameter2.1 (1.8-2.4cm) PWd1.2 (0.7-1.1cm)LVDs3.8 (2.5-4.0cm) FS (%) 23.6 %SV55.9 ml LVEF(%)47.0 (>50%) Aortic Valve AoV Peak Hugh.143.8cm/sAoV VTI21.1cm AO Peak GR.8.3mmHgLVOT Peak Hugh.85.5cm/s LVOT VTI 14.14cmAO Mean GR.4mmHg LAYNE (VMAX)1.82or3HYE (VTI)2.23cm2 AI P 1/2 [id number] Mitral Valve MV E Zhktgezz61.9cm/sMV DECEL [id number] MV A Jqcqpzlp07.3cm/sMV [id number] E/A Ratio0.7MVA (PHT)3.68cm2 TDI E/Lateral E'6.4E/Medial E'6.4 Pulmonary Valve PV Peak Ganxwvyp689.1cm/sPV Peak Grad.13mmHg Tricuspid Valve TR P. Fqhmvqug832at/sRAP [id number] TR Peak Gr.14mlInFXRR51kaFk Pulmonary Vein S1 Eqvxnyut01.7cm/sD2 Raqzumpe62.5cm/s PVa [id number] LEFT VENTRICLE The left ventricle is normal size. There is borderline concentric left ventricular hypertrophy. The E jection Fraction is mildly depressed. EF 40-45%. Difficult to estimate due to arrhythmia (PVC's). The re is global hypokinesis of the left ventricle. Transmitral Doppler flow pattern is Grade I-abnormal relaxation pattern. RIGHT VENTRICLE The right ventricle is normal size. There is normal right ventricular wall thickness. The right ventr icular systolic function is normal. ATRIA The left atrium size is normal. The right atrium size is normal. The interatrial septum is intact wit h no evidence for an atrial septal defect or patent foramen ovale as noted on 2-D or Doppler imaging. AORTIC VALVE The aortic valve is normal in structure and function. Doppler and Color Flow revealed mild aortic reg urgitation. There is no significant aortic valvular stenosis. MITRAL VALVE The mitral valve is normal in structure and function. There is no evidence of mitral valve prolapse. There is no mitral valve stenosis. Doppler and Color-flow revealed trace mitral regurgitation. TRICUSPID VALVE The tricuspid valve is normal in structure and function. Doppler and Color Flow revealed trace tricus pid regurgitation. There is no tricuspid valve stenosis. PULMONIC VALVE The pulmonic valve is not well visualized. Doppler and Color Flow revealed no pulmonic valvular regur gitation. There is no pulmonic valvular stenosis. GREAT VESSELS The aortic root is normal in size. The IVC is normal in size and collapses >50% with inspiration. PERICARDIAL EFFUSION There is no evidence of significant pericardial effusion. Critical Notification Critical Value: No <Conclusion> The Ejection Fraction is mildly depressed. EF 40-45%. Difficult to estimate due to arrhythmia (PVC's) . There is global hypokinesis of the left ventricle. Signed by : Jerry Kam, Electronically Approved : 08/17/2018 15:17:50
--- NOTE | 2018-08-17 15:28 | NUR ---
SS following for discharge planning. SS reviewed pt chart. Pt is from home with spouse and is currently on room air. No discharge needs noted at this time. SS will continue to follow for pending discharge needs.
--- NOTE | 2018-08-17 17:56 | PDOC ---
Provider Note Provider Note Reviewed his EKG from his PCP's office. No significant abnormalities noted. Per report he was orthostatic. This is likely non-cardiac syncope, although due to history cannot be completely ruled out. He did wear a monitor in May 2018 which revealed a 16.3% PVC burden but in light of lack of any cardiac symptoms, further treatment was deferred. Will plan for a loop recorder on an outpt basis. Restart low dose b-lindsay therapy. Cut amlodipine to 2.5mg daily. Will f/u in rubi.arnie. LILLIE RAMIREZ MD Aug 17, 2018 17:56
[2018-08-17] MEDS ORDERED: METOPROLOL SUCC 24HR ER 25 MG TAB.ER.24H. PO ONE (18:00)
[2018-08-17] MEDS ORDERED: ATORVASTATIN CALCIUM 10 MG TABLET. PO SCH (21:00)
[2018-08-17] MEDS ORDERED: LATANOPROST 0.005% OPHTH SOLUTION 2.5ML BOTTLE. OU SCH (21:00)
[2018-08-17 23:15] LABS: HEMOGLOBIN A1C 5.9 % (4.8-5.6)
[2018-08-18 03:20] VITALS: BP 106/59
[2018-08-18] MEDS: LEVOTHYROXINE 25 MCG TABLET. PO SCH (06:05)
[2018-08-18] MEDS: PANTOPRAZOLE 40 MG TABLET.DR. PO SCH (06:05)
[2018-08-18 07:00] VITALS: BP 126/69
--- NOTE | 2018-08-18 07:09 | PDOC ---
SUBJECTIVE Subjective Pt states that he is feeling well. No acute complaints today. Right arm swelled yesterday but improved after laying it on a pillow overnight. OBJECTIVE Vital Signs Vital Signs Date Time Temp Pulse Resp B/P (MAP) Pulse Ox O2 Delivery O2 Flow Rate FiO2 08/18/18 03:20 97.6 62 16 106/59 (75) 94 Room Air 97.6 08/17/18 22:47 97.9 65 16 112/69 (83) 95 Room Air 97.9 08/17/18 22:24 82 129/76 08/17/18 19:35 Room Air 08/17/18 19:19 97.8 82 16 129/76 (93) 96 Room Air 97.8 08/17/18 15:00 98.1 69 18 131/68 (89) 97 Room Air 98.1 08/17/18 13:13 98 125/66 08/17/18 12:25 98 125/66 (85) 97 08/17/18 12:20 74 128/63 (84) 98 08/17/18 12:15 63 130/65 (86) 97 08/17/18 11:00 98.3 60 18 126/67 (86) 99 Room Air 98.3 08/17/18 08:00 Room Air I & O Intake and Output 08/18/18 07:00 Intake Total 400 ml Output Total 50 ml Balance 350 ml Intake Oral 400 ml Output Urine Total 50 ml # Voids 2 PHYSICAL EXAM Physical Exam GEN.: No apparent distress. Alert and oriented. Thin HEENT: Head is normocephalic, atraumatic NECK: Supple. LUNGS: Clear to auscultation. HEART: irregular rhythm. Peripheral pulses intact ABDOMEN: Soft, nontender. Positive bowel sounds. EXTREMITIES: Without any cyanosis, right arm edematous and erythematous, not warm to touch NEUROLOGIC: Normal speech, normal tone PSYCHIATRIC: Normal affect, normal mood. SKIN: No ulcerations, ecchymosis multiple areas of body ASSESSMENT/PLAN Assessment/Plan Pt is a 87yo CM admitted for syncopal event 1)Syncope- pt was bradycardic with orthostatic hypotension in clinic prior to admission with change in EKG. Having trigemeny, multiple PVCs. Cardiology has seen and does not feel that syncope was cardiogenic. Pt says that he is to start taking his Norvasc in the morning and Metoprolol in the evening with meals. Pt had hit his head when he fell; CT without contrast WNL. 2)Anemia- mild. Receiving Ferrous Sulfate 3)Chronic thrombocytopenia- currently improved 4)Hx Lymphoma/Colon Cancer- stable 5)HTN- well controlled, see above 6)HLD- well controlled. Will continue atorvastatin 10mg 7)Hypothyroidism- previously well controlled. Continue levothyroxine 25mcg 8)CKD- Stage 3, stable 9)CAD 10)Hx CVA MARIA DOLORES CARBONE MD Aug 18, 2018 07:09
--- NOTE | 2018-08-18 08:44 | PDOC2 ---
CONSULT Date of Consult Date of Consult DATE: 08/18/18 TIME: 08:39 Reason for Consult Reason for Consult: Right reversed total shoulder arthroplasty Referring Physician Referring Physician: Meliton Identification/Chief Complaint Chief Complaint Syncopal episode Source Source: Chart review, Patient History of Present Illness Reason for Visit: Patient had underwent a right reverse total shoulder arthroplasty couple weeks ago with Dr. Linn. He had a syncopal episode and presented to his primary care provider and was admitted for workup regarding this. He does have a history of some PVCs and had been seen by cardiology. He tells me he cannot think of any preceding symptoms but just fell. Currently, he denies any chest pain, dizziness, lightheadedness. Regarding his shoulder, he tells me his pain is around a 1-2. He normally has been wearing the sling but forgot to bring in to the hospital with he tells me he has been working on the exercises that he was given an denies any concerns with the shoulder right now. 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 Linn) Family History Family History: Heart Disease Social History No ALCOHOL: rare Drugs: None Lives: with Family Current Medications Current Medications Current Medications Amlodipine Besylate (Norvasc) 5 mg DAILY PO Last administered on 08/17/18at 13:13 ; Start 08/17/18 at 09:00; Stop 08/17/18 at 17:57; Status DC Aspirin (Children'S Aspirin) 81 mg DAILYWBKFT PO Last administered on 08/17/18at 13:13; Start 08/17/18 at 08:00 Atorvastatin Calcium (Lipitor) 10 mg HS PO Last administered on 08/17/18at 22:02 ; Start 08/17/18 at 21:00 Docusate Sodium (Colace) 100 mg PRN DAILY PRN PO constipation Last administered on 08/17/18 13:13; Start 08/17/18 at 06:45 Latanoprost (Xalatan) 1 drop QHS OU Last administered on 08/17/18 22:02; Start 08/17/18 at 21:00 Brimonidine Tartrate (Alphagan) 1 drop BID OU Last administered on 08/17/18 22: 03; Start 08/17/18 at 09:00 Levothyroxine Sodium (Synthroid) 25 mcg DAILYAC PO Last administered on 06:05; Start 08/17/18 at 07:30 Pantoprazole Sodium (Protonix) 40 mg DAILYAC PO Last administered on 08/18/18 06:05; Start 08/17/18 at 07:30 Non-Formulary Medication ([Eylea] ) 40 mg EVERY 6 WEEKS EACHEYE ; Start 08/17/18 at 06:45; Status UNV Timolol Maleate (Timoptic 0.5% [facility]) 1 drop BID OU Last administered on 22:02; Start 08/17/18 at 09:00 Amlodipine Besylate (Norvasc) 2.5 mg DAILY PO ; Start 08/18/18 at 09:00 Metoprolol Succinate (Toprol Xl) 25 mg 1X ONCE PO Last administered on 22:24; Start 08/17/18 at 18:00; Stop 08/17/18 at 18:04; Status DC Active Scripts Active Reported Ultram (Tramadol Hcl) 50 Mg Tablet 50-100 Mg PO Q4HRS PRN Vitamin B12 (Cyanocobalamin (Vitamin B-12)) 2,500 Mcg Tab.chew 2,500 Mcg PO DAILY [Eylea] 40 Mg EACHEYE EVERY 6 WEEKS INTRAVITREOUS INJECTION Ferralet 90 Dual-Iron Tablet (Iron, Carb & Gluc/Fa/B12/C/Dss) 1 Each Tablet 1 Each PO DAILY Preservision Areds Softgel (Vit A/Vit C/Vit E/Zinc/Copper) 1 Each Capsule 1 Each PO DAILY Docusate Sodium 100 Mg Capsule 100 Mg PO PRN Miralax (Polyethylene Glycol 3350) 17 Gm Powd.pack 1 Pkt PO DAILY Combigan Eye Drops (Brimonidine Tartrate/Timolol) 5 Ml Drops 5 Ml OP BID Lumigan (Bimatoprost) 2.5 Ml Drops 2.5 Ml OP DAILY Omeprazole 20 Mg Capsule.dr 20 Mg PO DAILY Aspirin 81 Mg Tab.chew 81 Mg PO DAILY Levothyroxine Sodium 25 Mcg Tablet 25 Mcg PO DAILYAC Metoprolol Succinate ( Xl ) (Metoprolol Succinate) 25 Mg Tab.er.24h 25 Mg PO DAILY Atorvastatin Calcium 10 Mg Tablet 10 Mg PO HS Amlodipine Besylate 10 Mg Tablet 10 Mg PO DAILY Allergies Allergies: Coded Allergies: codeine (Verified Adverse Reaction, Severe, HALLUCINATIONS, 08/08/18) morphine (Verified Adverse Reaction, Severe, HALLUCINATIONS, 08/08/18) ROS General: No: Chills, Night Sweats, Fatigue, Malaise, Appetite, Other PSYCHOLOGICAL ROS: No: Anxiety, Behavioral Disorder, Concentration difficultie , Decreased libido, Depression, Disorientation, Hallucinations, Hostility, Irritablity, Memory difficulties, Mood Swings, Obsessive thoughts, Physical abuse, Sexual abuse, Sleep disturbances, Suicidal ideation, Other Eyes: No Blurry vision, No Decreased vision, No Double vision, No Dry eyes, No Excessive tearing, No Eye Pain, No Itchy Eyes, No Loss of vision, No Photophobia , No Scotomata, No Uses contacts, No Uses glasses, No Other HEENT: No: Heacaches, Visual Changes, Hearing change, Nasal congestion, Nasal discharge, Oral lesions, Sinus pain, Sore Throat, Epistaxis, Sneezing, Snoring, Tinnitus, Vertigo, Vocal changes, Other ALLERGY AND IMMUNOLOGY: No: Hives, Insect Bite Sensitivity, Itchy/Watery Eyes, Nasal Congestion, Post Nasal Drip, Seasonal Allergies, Other Hematological and Lymphatic: No: Bleeding Problems, Blood Clots, Blood Transfusions, Brusing, Night Sweats, Pallor, Swollen Lymph Nodes, Other ENDOCRINE: No: Breast Changes, Galactorrhea, Hair Pattern Changes, Hot Flashes , Malaise/lethargy, Mood Swings, Palpitations, Polydipsia/polyuria, Skin Changes , Temperature Intolerance, Unexpected Weight Changes, Other Respiratory: No: Cough, Hemoptysis, Orthopnea, Pleuritic Pain, Shortness of breath, SOB with excertion, Sputum Changes, Stridor, Tachypnea, Wheezing, Other Cardiovascular: No Chest Pain, No Palpitations, No Orthopnea, No Paroxysmal Noc. Dyspnea, No Edema, No Lt Headedness, No Other Gastrointestinal: No Nausea, No Vomiting, No Abdominal Pain, No Diarrhea, No Constipation, No Melena, No Hematochezia, No Other Genitourinary: No Dysuria, No Frequency, No Incontinence, No Hematuria, No Retention, No Discharge, No Urgency, No Pain, No Flank Pain, No Other, No , No , No , No , No , No , No Musculoskeletal: Yes Joint Pain, Yes Joint Stiffness Neurological: No Behavorial Changes, No Bowel/Bladder ControlChng, No Confusion , No Dizziness, No Gait Disturbance, No Headaches, No Impaired Coord/balance, No Memory Loss, No Numbness/Tingling, No Seizures, No Speech Problems, No Tremors, No Visual Changes, No Weakness, No Other Skin: No Dry Skin, No Eczema, No Hair Changes, No Lumps, No Mole Changes, No Mottling, No Nail Changes, No Pruritus, No Rash, No Skin Lesion Changes, No Other, No Acne Physical Exam General: Alert, Oriented X3, No acute distress HEENT: Atraumatic, EOMI Lungs: Other (respirations are unlabored with symmetric chest rise) Heart: Other (irregular rate, no edema lower extremities) Abdomen: Soft, No tenderness Extremities: No edema, Normal pulses Skin: No rashes Neuro: Normal speech, Strength at 5/5 X4 ext, Sensation intact Psych/Mental Status: Mental status NL, Mood NL MUSCULOSKELETAL: Other (right upper extremity has some mild edema throughout. Incision is clean dry and intact.) Vitals VITALS Vital Signs Date Time Temp Pulse Resp B/P (MAP) Pulse Ox O2 Delivery O2 Flow Rate FiO2 08/18/18 07:00 97.7 63 18 126/69 (88) 98 Room Air 97.7 Labs Labs Laboratory Tests Test 08/16/18 18:26 08/16/18 23:12 08/17/18 03:45 White Blood Count 7.6 x10^3/uL (4.0-11.0) Red Blood Count 3.42 x10^6/uL (4.30-5.70) Hemoglobin 10.3 g/dL (13.0-17.5) Hematocrit 31.6 % (39.0-53.0) Mean Corpuscular Volume 93 fL (79-100) Mean Corpuscular Hemoglobin 30 pg (25-35) Mean Corpuscular Hemoglobin Concent 33 g/dL (31-37) Red Cell Distribution Width 15.2 % (11.5-14.5) Platelet Count 158 x10^3/uL (140-400) Neutrophils (%) (Auto) 66 % (31-73) Lymphocytes (%) (Auto) 21 % (24-48) Monocytes (%) (Auto) 8 % (0-9) Eosinophils (%) (Auto) 5 % (0-3) Basophils (%) (Auto) 1 % (0-3) Neutrophils # (Auto) 5.0 x10^3uL (1.8-7.7) Lymphocytes # (Auto) 1.6 x10^3/uL (1.0-4.8) Monocytes # (Auto) 0.6 x10^3/uL (0.0-1.1) Eosinophils # (Auto) 0.4 x10^3/uL (0.0-0.7) Basophils # (Auto) 0.0 x10^3/uL (0.0-0.2) Sodium Level 140 mmol/L (136-145) 139 mmol/L (136-145) Potassium Level 4.1 mmol/L (3.5-5.1) 4.0 mmol/L (3.5-5.1) Chloride Level 101 mmol/L (98-107) 103 mmol/L (98-107) Carbon Dioxide Level 30 mmol/L (21-32) 26 mmol/L (21-32) Anion Gap 9 (6-14) 10 (6-14) Blood Urea Nitrogen 23 mg/dL (8-26) 24 mg/dL (8-26) Creatinine 1.3 mg/dL (0.7-1.3) 1.3 mg/dL (0.7-1.3) Estimated GFR (Cockcroft-Gault) 52.5 52.5 BUN/Creatinine Ratio 18 (6-20) Glucose Level 167 mg/dL (70-99) 106 mg/dL (70-99) Calcium Level 9.2 mg/dL (8.5-10.1) 8.6 mg/dL (8.5-10.1) Total Bilirubin 0.7 mg/dL (0.2-1.0) Aspartate Amino Transf (AST/SGOT) 24 U/L (15-37) Alanine Aminotransferase (ALT/SGPT) 18 U/L (16-63) Alkaline Phosphatase 64 U/L (46-116) Troponin I Quantitative < 0.017 ng/mL (0.000-0.055) < 0.017 ng/mL (0.000-0.055) < 0.017 ng/mL (0.000-0.055) Total Protein 6.8 g/dL (6.4-8.2) Albumin 3.2 g/dL (3.4-5.0) Albumin/Globulin Ratio 0.9 (1.0-1.7) Hemoglobin A1c 5.9 % (4.8-5.6) Magnesium Level 2.0 mg/dL (1.8-2.4) Triglycerides Level 66 mg/dL (0-150) Cholesterol Level 123 mg/dL (0-200) LDL Cholesterol, Calculated 66 mg/dL (0-100) VLDL Cholesterol, Calculated 13 mg/dL (0-40) Non-HDL Cholesterol Calculated 79 mg/dL (0-129) HDL Cholesterol 44 mg/dL (40-60) Cholesterol/HDL Ratio 2.8 Thyroid Stimulating Hormone (TSH) 2.710 uIU/mL (0.358-3.74) Images Images Upper extremity ultrasound negative for DVT Assessment/Plan Assessment/Plan His shoulder appears to be healing properly. We will get him started on some gentle physical therapy as long as he is here. He should continue PT at home. He should follow up with Dr. Linn in 2-3 weeks. Sling should be used for approximately another month. He should be nonweightbearing right upper extremity. PREETI VERDE II, MD Aug 18, 2018 08:44
[2018-08-18] MEDS: TIMOLOL 0.5% OPHTH SOLUTION 5ML BOTTLE. OU SCH (08:57)
[2018-08-18] MEDS: ASPIRIN CHEWABLE 81 MG TABLET. PO SCH (08:57)
[2018-08-18] MEDS: BRIMONIDINE 0.2% OPHTH SOLUTION 5ML BOTTLE. OU SCH (08:57)
[2018-08-18] MEDS ORDERED: amLODIPine BESYLATE 5 MG TABLET PO SCH (09:00)
[2018-08-18 11:24] VITALS: BP 113/69
[2018-08-18] MEDS ORDERED: METOPROLOL SUCC 24HR ER 25 MG TAB.ER.24H. PO SCH (12:00)
[2018-08-18 12:09] VITALS: BP 113/69
[2018-08-18] MEDS ORDERED: AMLO5TAB10 PO (12:48)
--- NOTE | 2018-08-18 12:48 | PDOC3 ---
Discharge Summary Date of Admission: Aug 17, 2018 Date of Discharge: Aug 18, 2018 Follow-Up: Other (2 weeks) Admitting Diagnosis comment: Syncope FINAL DIAGNOSIS Syncope- orthostatic, Anemia- mild, Chronic thrombocytopenia, Hx lymphoma/colon cancer, HTN, HLD, Hypothyroidism, CKD- Stage 3, CAD, Hx CVA Brief Hospital Course Pt is a 87yo CM admitted for syncopal event 1)Syncope- pt was bradycardic with orthostatic hypotension in clinic prior to admission with change in EKG. Having trigemeny, multiple PVCs. Cardiology has seen and does not feel that syncope was cardiogenic. Pt's Norvasc decreased to 2.5mg and will start taking Metoprolol in the evening with meals. Pt had hit his head when he fell; CT without contrast WNL. 2)Anemia- mild. Receiving Ferrous Sulfate 3)Chronic thrombocytopenia- currently improved 4)Hx Lymphoma/Colon Cancer- stable 5)HTN- well controlled, see above 6)HLD- well controlled. Continued on atorvastatin 10mg 7)Hypothyroidism- previously well controlled. Continued on levothyroxine 25mcg 8)CKD- Stage 3, stable 9)CAD 10)Hx CVA CONDITION AT DISCHARGE: Improved Discharge Medications Current Medications Amlodipine Besylate (Norvasc) 5 mg DAILY PO Last administered on 08/17/18 13:13 ; Start 08/17/18 at 09:00; Stop 08/17/18 at 17:57; Status DC Aspirin (Children'S Aspirin) 81 mg DAILYWBKFT PO Last administered on 08/18/18 08:57; Start 08/17/18 at 08:00 Atorvastatin Calcium (Lipitor) 10 mg HS PO Last administered on 08/17/18 22:02 ; Start 08/17/18 at 21:00 Docusate Sodium (Colace) 100 mg PRN DAILY PRN PO constipation Last administered on 08/17/18 13:13; Start 08/17/18 at 06:45 Latanoprost (Xalatan) 1 drop QHS OU Last administered on 08/17/18 22:02; Start 08/17/18 at 21:00 Brimonidine Tartrate (Alphagan) 1 drop BID OU Last administered on 08/18/18 08: 57; Start 08/17/18 at 09:00 Levothyroxine Sodium (Synthroid) 25 mcg DAILYAC PO Last administered on 06:05; Start 08/17/18 at 07:30 Pantoprazole Sodium (Protonix) 40 mg DAILYAC PO Last administered on 08/18/18 06:05; Start 08/17/18 at 07:30 Non-Formulary Medication ([Eylea] ) 40 mg EVERY 6 WEEKS EACHEYE ; Start 08/17/18 at 06:45; Status UNV Timolol Maleate (Timoptic 0.5% Oph) 1 drop BID OU Last administered on 08:57; Start 08/17/18 at 09:00 Amlodipine Besylate (Norvasc) 2.5 mg DAILY PO Last administered on 08/18/18 08: 58; Start 08/18/18 at 09:00 Metoprolol Succinate (Toprol Xl) 25 mg 1X ONCE PO Last administered on 22:24; Start 08/17/18 at 18:00; Stop 08/17/18 at 18:04; Status DC Metoprolol Succinate (Toprol Xl) 25 mg DAILY PO Last administered on 08/18/18at 12:09; Start 08/18/18 at 12:00 Active Scripts Active Reported Ultram (Tramadol Hcl) 50 Mg Tablet 50-100 Mg PO Q4HRS PRN Vitamin B12 (Cyanocobalamin (Vitamin B-12)) 2,500 Mcg Tab.chew 2,500 Mcg PO DAILY [Eylea] 40 Mg EACHEYE EVERY 6 WEEKS INTRAVITREOUS INJECTION Ferralet 90 Dual-Iron Tablet (Iron, Carb & Gluc/Fa/B12/C/Dss) 1 Each Tablet 1 Each PO DAILY Preservision Areds Softgel (Vit A/Vit C/Vit E/Zinc/Copper) 1 Each Capsule 1 Each PO DAILY Docusate Sodium 100 Mg Capsule 100 Mg PO PRN Miralax (Polyethylene Glycol 3350) 17 Gm Powd.pack 1 Pkt PO DAILY Combigan Eye Drops (Brimonidine Tartrate/Timolol) 5 Ml Drops 5 Ml OP BID Lumigan (Bimatoprost) 2.5 Ml Drops 2.5 Ml OP DAILY Omeprazole 20 Mg Capsule.dr 20 Mg PO DAILY Aspirin 81 Mg Tab.chew 81 Mg PO DAILY Levothyroxine Sodium 25 Mcg Tablet 25 Mcg PO DAILYAC Metoprolol Succinate ( Xl ) (Metoprolol Succinate) 25 Mg Tab.er.24h 25 Mg PO DAILY Atorvastatin Calcium 10 Mg Tablet 10 Mg PO HS Amlodipine Besylate 10 Mg Tablet 10 Mg PO DAILY Vital Signs Vital Signs Date Time Temp Pulse Resp B/P (MAP) Pulse Ox O2 Delivery O2 Flow Rate FiO2 08/18/18 12:09 65 113/69 08/18/18 11:24 97.6 18 97 Room Air 97.6 Labs Laboratory Tests Test 08/16/18 18:26 08/16/18 23:12 08/17/18 03:45 White Blood Count 7.6 x10^3/uL (4.0-11.0) Red Blood Count 3.42 x10^6/uL (4.30-5.70) Hemoglobin 10.3 g/dL (13.0-17.5) Hematocrit 31.6 % (39.0-53.0) Mean Corpuscular Volume 93 fL (79-100) Mean Corpuscular Hemoglobin 30 pg (25-35) Mean Corpuscular Hemoglobin Concent 33 g/dL (31-37) Red Cell Distribution Width 15.2 % (11.5-14.5) Platelet Count 158 x10^3/uL (140-400) Neutrophils (%) (Auto) 66 % (31-73) Lymphocytes (%) (Auto) 21 % (24-48) Monocytes (%) (Auto) 8 % (0-9) Eosinophils (%) (Auto) 5 % (0-3) Basophils (%) (Auto) 1 % (0-3) Neutrophils # (Auto) 5.0 x10^3uL (1.8-7.7) Lymphocytes # (Auto) 1.6 x10^3/uL (1.0-4.8) Monocytes # (Auto) 0.6 x10^3/uL (0.0-1.1) Eosinophils # (Auto) 0.4 x10^3/uL (0.0-0.7) Basophils # (Auto) 0.0 x10^3/uL (0.0-0.2) Sodium Level 140 mmol/L (136-145) 139 mmol/L (136-145) Potassium Level 4.1 mmol/L (3.5-5.1) 4.0 mmol/L (3.5-5.1) Chloride Level 101 mmol/L (98-107) 103 mmol/L (98-107) Carbon Dioxide Level 30 mmol/L (21-32) 26 mmol/L (21-32) Anion Gap 9 (6-14) 10 (6-14) Blood Urea Nitrogen 23 mg/dL (8-26) 24 mg/dL (8-26) Creatinine 1.3 mg/dL (0.7-1.3) 1.3 mg/dL (0.7-1.3) Estimated GFR (Cockcroft-Gault) 52.5 52.5 BUN/Creatinine Ratio 18 (6-20) Glucose Level 167 mg/dL (70-99) 106 mg/dL (70-99) Calcium Level 9.2 mg/dL (8.5-10.1) 8.6 mg/dL (8.5-10.1) Total Bilirubin 0.7 mg/dL (0.2-1.0) Aspartate Amino Transf (AST/SGOT) 24 U/L (15-37) Alanine Aminotransferase (ALT/SGPT) 18 U/L (16-63) Alkaline Phosphatase 64 U/L (46-116) Troponin I Quantitative < 0.017 ng/mL (0.000-0.055) < 0.017 ng/mL (0.000-0.055) < 0.017 ng/mL (0.000-0.055) Total Protein 6.8 g/dL (6.4-8.2) Albumin 3.2 g/dL (3.4-5.0) Albumin/Globulin Ratio 0.9 (1.0-1.7) Hemoglobin A1c 5.9 % (4.8-5.6) Magnesium Level 2.0 mg/dL (1.8-2.4) Triglycerides Level 66 mg/dL (0-150) Cholesterol Level 123 mg/dL (0-200) LDL Cholesterol, Calculated 66 mg/dL (0-100) VLDL Cholesterol, Calculated 13 mg/dL (0-40) Non-HDL Cholesterol Calculated 79 mg/dL (0-129) HDL Cholesterol 44 mg/dL (40-60) Cholesterol/HDL Ratio 2.8 Thyroid Stimulating Hormone (TSH) 2.710 uIU/mL (0.358-3.74) Allergies Allergies Coded Allergies Type Severity Reaction Last Updated Verified codeine Adverse Reaction Severe HALLUCINATIONS 08/08/18 Yes morphine Adverse Reaction Severe HALLUCINATIONS 08/08/18 Yes Disposition/Orders: D/C to Home MARIA DOLORES CARBONE MD Aug 18, 2018 12:48
--- NOTE | 2018-08-18 15:51 | PDOC ---
CARDIO Progress Notes Date and Time Date of Service 08/18/18 Time of Evaluation 1140 Subjective Subjective: No Chest Pain, No shortness of breath, No Palpitations, No Dizziness Vitals Vitals Vital Signs Date Time Temp Pulse Resp B/P (MAP) Pulse Ox O2 Delivery O2 Flow Rate FiO2 08/18/18 12:09 65 113/69 08/18/18 11:24 97.6 18 97 Room Air 97.6 Weight Weight [ ] Input and Output Intake and Output Intake and Output 08/18/18 07:00 Intake Total 400 ml Output Total 50 ml Balance 350 ml Intake Oral 400 ml Output Urine Total 50 ml # Voids 3 Physical Exam HEENT: Neck Supple W Full Motion Chest: Symmetric Heart: RRR (PVCs) Abdomen: Soft N/T Extremities: No Edema Neurology: alert, follow commands Assessment Assessment 1. Syncope; no significant bradycardia/pauses on tele 2. Arrhythmia; tele notable for frequent PVC's. improved with resumption of BB. 3. CAD: past CABG, clinically stable. CP free. MPI 01/2018 without evidence of ischemia or infarct 4. Chronic systolic HF; echo showed mildly depressed LV function with an EF of 40-45%. Compensated. 5. HTN: controlled Recommendations ASA Continue BB Will arrange for outpatient loop recorder implantation May discharge from a CV standpoint DEEJAY SCOTT APRN Aug 18, 2018 15:51
--- NOTE | 2018-08-18 15:58 | NUR ---
pt is discharged home with self care at 1445 via wheelchair via this RN. pt is in stable condition. pt has all belongings with him. pt received discharge instructions and stated he had no further questions for me. pt states he has a cane to use at home for stablization.
== END 2018-08-18 14:45 | disposition home or self-care (01) | DRG 312 ==
LOC: EDSEX → 2 SOUTH 16:07
PROVIDERS: ADMIT Family Medicine; ATTEND Family Medicine
DX: I95.1 Orthostatic hypotension (principal); I13.0 Hypertensive heart and chronic kidney disease with heart failure and stage 1 through stage 4 chronic kidney disease, or unspecified chronic kidney disease; I50.22 Chronic systolic (congestive) heart failure; I49.9 Cardiac arrhythmia, unspecified; I49.3 Ventricular premature depolarization; D64.9 Anemia, unspecified; D69.6 Thrombocytopenia, unspecified; E03.9 Hypothyroidism, unspecified; E78.5 Hyperlipidemia, unspecified; I25.10 Atherosclerotic heart disease of native coronary artery without angina pectoris; K21.9 Gastro-esophageal reflux disease without esophagitis; Z96.611 Presence of right artificial shoulder joint; M10.9 Gout, unspecified; M19.042 Primary osteoarthritis, left hand; M19.041 Primary osteoarthritis, right hand; N18.3 Chronic kidney disease, stage 3 (moderate); R00.8 Other abnormalities of heart beat; Z82.49 Family history of ischemic heart disease and other diseases of the circulatory system; Z85.038 Personal history of other malignant neoplasm of large intestine; Z85.72 Personal history of non-Hodgkin lymphomas; Z86.73 Personal history of transient ischemic attack (TIA), and cerebral infarction without residual deficits; Z95.1 Presence of aortocoronary bypass graft; Z90.49 Acquired absence of other specified parts of digestive tract; Z88.6 Allergy status to analgesic agent; Z79.899 Other long term (current) drug therapy
CPT/HCPCS: 36415; 70450; 80048; 80053; 80061; 83036; 83735; 84443; 84484; 85025; 93005; 93306; 93971

== ENCOUNTER → 2019-04-12 | Outpatient (CLI) | payer MEDICARE, BC ==
[~2019-04-12] MED LIST changes: +AMLO5TAB10 PO
--- NOTE | 2019-04-12 16:19 | KCIC ---
3 view study of the left foot Clinical indications: Left foot pain and redness and swelling for a couple of weeks. FINDINGS: No acute fracture or dislocation or lytic process is seen. No periosteal reaction is seen. Small plantar spur of the calcaneus is evident. There is mild dorsal spurring of the talonavicular joint. There is moderate spurring and joint space narrowing of the first metatarsal phalangeal joint. There is soft tissue calcification medial to the first metatarsal phalangeal joint. No erosive arthropathy is seen here. IMPRESSION: No acute fracture. 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 Soft tissue calcification is seen medially. 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 Small plantar spur. Electronically signed by: Paulie Bennett MD (04/12/2019 4:16 PM) [id number]
== END | disposition home or self-care (01) ==
LOC: KCIC 10:03
PROVIDERS: ATTEND Nurse Practitioner Gerontology
DX: M77.32 Calcaneal spur, left foot (principal); M19.072 Primary osteoarthritis, left ankle and foot; M79.89 Other specified soft tissue disorders
CPT/HCPCS: 73630

== ENCOUNTER → 2019-05-16 | Outpatient (CLI) | payer MEDICARE, BC ==
[~2019-05-16] MED LIST changes: +OMEP-229 PO; -OMEP20CA10 PO
--- NOTE | 2019-05-16 17:03 | CARD ---
MR#: [id number] Date of Study: 05/16/2019 Ordering Physician: LILLIE KAM, Referring Physician: LILLIE KAM, Tech: Delmy Cortes APPROVED REPORT EXAM: Two-dimensional and M-mode echocardiogram with Doppler and color Doppler. Other Information Quality : AverageHR: 57bpm INDICATION Aneurysm ascending Aorta Surgery/Intervention CABG: Date: 2008 RISK FACTORS Hyperlipidemia 2D DIMENSIONS RVDd3.4 (2.9-3.5cm)Left Atrium(2D)3.6 (1.6-4.0cm) IVSd1.0 (0.7-1.1cm)Aortic Root(2D)3.8 (2.0-3.7cm) LVDd5.8 (3.9-5.9cm)LVOT Diameter2.2 (1.8-2.4cm) PWd1.3 (0.7-1.1cm)LVDs3.4 (2.5-4.0cm) FS (%) 40.8 %SV116.1 ml LVEF(%)70.9 (>50%) Aortic Valve AoV Peak Hugh.135.3cm/sAoV VTI26.9cm AO Peak GR.7.3mmHgLVOT Peak Hugh.60.4cm/s LVOT VTI 11.25cmAO Mean GR.4mmHg LAYNE (VMAX)1.67ib9OHA (VTI)1.53cm2 AI P 1/2 [id number] Mitral Valve MV E Ftalgygk59.0cm/sMV E Peak Gr.88mmHg MV DECEL [id number] A Fydhkvdp02.5cm/s MV E Mean Gr.1mmHgMV [id number] E/A Ratio1.5MVA (PHT)3.59cm2 TDI E/Lateral E'13.1E/Medial E'9.4 Pulmonary Valve PV Peak Yazgoexv07.6cm/sPV Peak Grad.2mmHg Tricuspid Valve TR P. Nrtkbowp345qt/sRAP [id number] TR Peak Gr.25olUaZRXC98xuCv Pulmonary Vein S1 Iwvmfcsd17.1cm/sD2 Gftiywxd58.5cm/s PVa jorhzyut290svew LEFT VENTRICLE The left ventricle is normal size. There is mild concentric left ventricular hypertrophy. The left ve ntricular systolic function is severely abnormal. EF 30-35% There is significant LV dyssynchrony. The re is significant global hypokinesis. Transmitral Doppler flow pattern is Grade II-pseudonormal filli ng dynamics. RIGHT VENTRICLE The right ventricle is normal size. There is normal right ventricular wall thickness. The right ventr icular systolic function is normal. ATRIA The left atrium is mildly dilated. The right atrium size is normal. The interatrial septum is intact with no evidence for an atrial septal defect or patent foramen ovale as noted on 2-D or Doppler imagi ng. AORTIC VALVE The aortic valve is normal in structure and function. Doppler and Color Flow revealed mild to moderat e aortic regurgitation. There is no significant aortic valvular stenosis. MITRAL VALVE The mitral valve is normal in structure and function. There is no evidence of mitral valve prolapse. There is no mitral valve stenosis. Doppler and Color-flow revealed mild mitral regurgitation. TRICUSPID VALVE The tricuspid valve is normal in structure and function. Doppler and Color Flow revealed trace tricus pid regurgitation with an estimated PAP of 21 mmHg. There is no tricuspid valve stenosis. PULMONIC VALVE The pulmonic valve is not well visualized. Doppler and Color Flow revealed trace to mild pulmonic barb vular regurgitation. There is no pulmonic valvular stenosis. GREAT VESSELS The aortic root is normal in size. The IVC is normal in size and collapses >50% with inspiration. PERICARDIAL EFFUSION There is no evidence of significant pericardial effusion. Critical Notification Critical Value: No <Conclusion> There is significant LV dyssynchrony. There is significant global hypokinesis. Doppler and Color Flow revealed mild to moderate aortic regurgitation. The left ventricular systolic function is severely abnormal. EF 30-35% Signed by : Lillie Kam, Electronically Approved : 05/16/2019 17:03:14
== END | disposition home or self-care (01) ==
LOC: EDSEX → ECHO 13:41
PROVIDERS: ATTEND Internal Medicine Cardiovascular Disease
DX: I08.8 Other rheumatic multiple valve diseases (principal); I71.2 Thoracic aortic aneurysm, without rupture; E78.5 Hyperlipidemia, unspecified
CPT/HCPCS: 93306